=== PATIENT | male | born 1975 | race Two or more races ===

== ENCOUNTER 2025-04-22 09:26 | Outpatient (REF) | payer OTHER, SELFPAY ==
[2025-04-22 13:22] LABS: MANUAL DIFF FLAG NO
[2025-04-22 13:26] LABS: Appearance Urine Turbid; Glucose Urine UA Negative (Negative); PH 5.0 (5.0-9.0); Specific Gravity - Urine >= 1.030 (1.005-1.025); UMIC TRIGGER UACC YES
[2025-04-22 13:35] LABS: UACC Culture Trigger YES
[2025-04-22 13:42] LABS: Hematocrit 41.5 % (42.0-52.0); Hemoglobin 13.0 g/dl (14.0-18.0); Imm Gran Abs Auto 0.02 X10*3/uL (0.00-0.03); Imm Gran Pct Auto 0.3 % (0.0-0.4); Lymphocytes Absolute Auto 3.4 X10*3/uL (1.2-4.9); Mean Corpuscular HGB Conc 31.3 g/dl (31.0-36.0); Mean Corpuscular Hemoglobin 25.1 pg (27.0-33.0); Mean Corpuscular Volume 80.1 fL (80.0-98.0); NRBC Abs Auto 0.000 X10*3/uL (0.0-0.012); NRBC Pct Auto 0.0 /100WBC (0.0-0.2); Platelet Count 281 X10*3/uL (160-400); Red Blood Count 5.18 X10*6/uL (4.60-5.80); White Blood Count 7.8 X10*3/uL (4.8-10.8)
[2025-04-22 14:24] LABS: Alanine Aminotransferase 19 U/L (0-40); Albumin Level 4.4 g/dL (3.5-5.0); Alkaline Phosphatase 60 U/L (39-117); Anion Gap 11 (12-20); Aspartate Amino Transferase 21 U/L (5-37); Blood Urea Nitrogen 9 mg/dL (9-16); Calcium 8.9 mg/dL (8.4-10.2); Carbon Dioxide 25 mmol/L (22-29); Chloride 109 mmol/L (96-108); Cholesterol 194 mg/dL (<200); Estimated Glomerular Filt Rate > 60; HDL Cholesterol 47 mg/dL (>40); Magnesium 2.0 mg/dL (1.6-2.6); Potassium 4.4 mmol/L (3.3-5.1); Sodium 141 mmol/L (135-145); Total Protein 7.2 g/dL (6.5-8.0); Triglycerides 90 mg/dL (<150)
[2025-04-22 14:54] LABS: Folate 6.8 ng/mL (> or = 4.0); Vitamin B12 286 pg/mL (200-900)
[2025-04-23 05:22] LABS: HBS Num1 0.00 mIU/mL (0-7.99); HBsAGNum1 0.35 S/CO (0.00-0.99); HIV Num 1 0.06 S/CO (0.00-0.99); Hepatitis B Surface Antigen Negative (Negative); ~HepC Num1 0.13 S/CO (0.00-0.79); ~Hepatitis B Surface Antibody NONREACTIVE (Nonreactive); ~Hepatitis C Antibody Nonreactive (Nonreactive)
[2025-04-23 06:00] LABS: Syphilis Screen Nonreactive (Nonreactive)
[2025-04-27 18:12] LABS: VITAMIN D (1,25 OH) D3 47 pg/mL; Vit D (1,25-Dihydroxy) Total 47 pg/mL (18-72); Vitamin D (1,25 OH) D2 <8 pg/mL
== END 2025-04-22 09:27 | disposition home or self-care (01) ==
LOC: HO.HKASLDS 09:26
PROVIDERS: PCP Student in an Organized Health Care Education/Training Program; Visit Provider Student in an Organized Health Care Education/Training Program
DX: Z13.9 Encounter for screening, unspecified (principal); I26.99 Other pulmonary embolism without acute cor pulmonale; E11.9 Type 2 diabetes mellitus without complications; G47.9 Sleep disorder, unspecified; Z87.891 Personal history of nicotine dependence
CPT/HCPCS: 36415; 80053; 80061; 81001; 82607; 82652; 82746; 83036; 83735; 84443; 85025; 86706; 86780; 86803; 87086; 87088; 87186; 87340; 87389

== ENCOUNTER 2025-04-22 09:26 | Outpatient (AMB) | payer OTHER, SELFPAY ==
--- NOTE | 2025-04-22 09:27 | MHC.PC.OV ---
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 Intake Note: new patient presents with pulmonary thrombosis Industrial Workers Required: No Accompanied by: Spouse Allergies No Known Allergies Allergy (Verified 04/22/25 09:31) Medication List - Last Reconciled 04/22/25 by Carlito Pichardo MD apixaban 5 mg PO BID metformin 500 mg PO BID Tobacco use date assessed: 04/22/25 Dental Screening Dental Screen Date: 04/22/25 Did you have a dental visit in the last 12 months?: No Did you have a dental problem in the last 6 months where you did not have access to dental care?: No Was dental information given to patient?: No HPI HPI Comments History of Present Illness Details Consent Verbal consent was obtained from the patient for blood work, a Cologuard test for colon cancer screening, and a home sleep study. He also provided consent for the release of his medical records from [facility]. Patient was informed and verbally consented to the use of an ambient scribe for clinic note documentation during this visit. History of Present Illness The patient is a 49 year old male presenting to establish care following a recent hospitalization for deep vein thrombosis and bilateral pulmonary embolism. Deep Vein Thrombosis and Pulmonary Embolism: The patient was diagnosed with deep vein thrombosis and bilateral pulmonary embolism on March 16 after presenting to the [facility] emergency room. He reports that symptoms began on March 15 with lightheadedness, followed by dizziness and right leg numbness on the morning of March 16. He also experienced a rapid heart rate, which prompted him to seek emergency care. He was hospitalized and spent one day in the ICU. The patient denies any recent long trips or flights, and the consulting concession cashier reportedly stated the event was idiopathic. He is currently being treated with apixaban 5 mg twice daily. Type 2 Diabetes Mellitus: The patient was diagnosed with type 2 diabetes during his recent hospitalization. He was prescribed metformin but has run out of the medication. This is his first time having health insurance and he has never been to a doctor before. Sleep Disturbance: The patient reports he barely sleeps, averaging about 4 hours per night, typically from midnight to 4:30 AM. He snores but denies feeling tired during the day, though he does take naps after work. He has never had a sleep study performed. Tobacco Use: The patient reports a history of smoking, having quit in 1997. He recently relapsed and started smoking again two weeks before his hospitalization for DVT and PE. Surgical History: - Right arm surgery in 2010 for repair of three tendons and the median nerve following a laceration from glass. Medications: - Apixaban 5 mg twice daily for deep vein thrombosis and pulmonary embolism. - Metformin 500 mg twice daily for type 2 diabetes mellitus (patient has run out). Social History: - Tobacco Use: The patient is a current smoker who quit in 1997 but resumed smoking two weeks prior to his recent hospitalization. - Substance Use: He reports a history of smoking marijuana but states he has not used it since 1997. - Past Social History: The patient left home at age 11 and has been on his own since. 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 - Sleep: He sleeps approximately 4 hours per night. - Allergies: Patient reports no known allergies. Family History: - The patient is unaware of his family medical history as he left home at age 11. Diagnostic Results: - No diagnostic results were reviewed during this visit. Review of Systems - Constitutional: Reports a history of lightheadedness. - Cardiovascular: Reports a history of a rapid heart rate associated with his recent embolic event. - Neurological: Reports a history of dizziness and right leg numbness associated with his recent embolic event; reports chronic decreased sensation in his right hand, sparing the pinky and half of the ring finger, since a surgery in 2010. - Integumentary: Reports having skin tags. - GI/: Reports normal bowel and bladder function. - Sleep: Reports sleeping only about 4 hours per night and snoring. Denies feeling tired during the day but does take naps after work. - Psychiatric: Reports feeling nervous. 10-point ROS reviewed and negative except as noted in HPI Past Medical History - Deep vein thrombosis and bilateral pulmonary embolism, diagnosed March 16, requiring an ICU stay. - Type 2 diabetes mellitus, newly diagnosed during recent hospitalization. 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 - The patient has no other known medical history and reports this is his first time seeing a doctor. Health Maintenance - A Cologuard test was ordered for age-appropriate colon cancer screening. - Comprehensive baseline lab work was ordered, including a CBC, CMP, lipid panel, TSH, vitamin levels, and infectious disease screening. - Follow-up is scheduled in two weeks to review all results. Physical Exam General: Well-appearing, in no acute distress. Vital signs: Within normal limits. HEENT: Normocephalic, atraumatic. PERRLA, EOMI. Conjunctiva clear, sclera anicteric. Oropharynx clear, mucous membranes moist. TMs intact bilaterally. Neck: Supple, no lymphadenopathy, no thyromegaly, no JVD or carotid bruits. Presence of skin tags noted. Cardiovascular: RRR, normal S1/S2, no murmurs, rubs, or gallops. Peripheral pulses 2+ and symmetric. No edema. Respiratory: Lungs clear to auscultation bilaterally, no wheezes, rales, or rhonchi. Normal effort. Abdomen: Soft, non-tender, non-distended. Normoactive bowel sounds. No hepatosplenomegaly, no masses. MSK: Full range of motion, no joint swelling or deformity. Normal gait. Skin: Warm, dry, intact. No rashes, lesions, or pallor. Presence of skin tags noted.surgical scar right forearm Neuro: Alert and oriented x3. Cranial nerves II-XII intact. Strength 5/5 throughout. Sensation intact except for decreased sensation in the right arm, specifically the pinky and half of the ring finger. Reflexes 2+ symmetric. Normal coordination and gait. Psych: Appropriate mood and affect. Normal judgment and insight. Plan 1. Deep Vein Thrombosis And Pulmonary Embolism - A prescription for apixaban 5 mg twice daily for three months was sent to the pharmacy. - A request for medical records from his [facility] admission will be submitted to review the details of his workup, including imaging such as a CTA and echocardiogram. 2. Type 2 Diabetes Mellitus - A prescription for metformin 500 mg twice daily was sent to the pharmacy. - Ordered lab work includes an HbA1c to assess his glycemic control over the last three months. 3. Suspected Sleep Apnea - A referral for a home sleep study was placed to evaluate for obstructive sleep apnea. 4. Skin Tags - The patient was advised that the skin tags can be removed via cryotherapy at a future appointment if he desires. Discussion Notes I had a detailed discussion with the patient, who is establishing care for the first time after a recent, life-threatening diagnosis of DVT and pulmonary embolism, along with new-onset type 2 diabetes. I explained the plan, starting with prescribing his essential medications, apixaban and metformin. We discussed the importance of obtaining his hospital records from [facility] to understand the full diagnostic workup. I outlined the need for comprehensive baseline lab work and age-appropriate cancer screening with oguard, which he agreed to. We also addressed his poor sleep and snoring, and I placed a referral for a home sleep study to investigate for sleep apnea. I advised him to return in two weeks to review all results and formulate a long-term care plan. Patient Instructions - Continue taking Apixaban 5 mg twice a day for your blood clots. - Start taking Metformin 500 mg twice a day for your diabetes. - Please have your blood drawn at the lab here in the clinic today. - You will receive a Cologuard test kit in the mail. Please follow the instructions to collect a sample and mail it back. - A sleep clinic will contact you to arrange a home sleep study. It is important to complete this test. - Please sign the form at the front desk agent to give us permission to request your medical records from [facility]. - Schedule a follow-up appointment to see me in two weeks to go over your test results. - If you would like your skin tags removed, you can make a separate appointment for that procedure. Medical Decision Making The patient is a 49-year-old male with no prior established medical care who presents after a recent hospitalization for a life-threatening, unprovoked bilateral pulmonary embolism and DVT, and a new diagnosis of type 2 diabetes. The immediate priority is ensuring continuity of care by prescribing apixaban to prevent recurrent thrombosis and metformin for glycemic control. A comprehensive evaluation is necessary given his lack of previous healthcare. Baseline lab work, including HbA1c, lipids, and infectious disease screening, was ordered to establish his overall health status. Age-appropriate colon cancer screening with Cologuard was initiated. The patient's report of snoring and significant sleep restriction (4 hours/night) raises high suspicion for obstructive sleep apnea, a potential contributor to his cardiovascular risk; therefore, a home sleep study was ordered. Review of his hospital records from [facility] is critical to understand the extent of his prior thrombotic event workup, including cardiac imaging. A follow-up visit in two weeks will be used to review all pending results and formulate a comprehensive, long-term management plan. Total Time Statement 30 min Total time spent caring for the patient today includes pre-visit chart review, documentation, review of laboratory and diagnostic imaging results, medication reconciliation, medically necessary evaluation, counseling on diagnoses, care coordination, ordering appropriate tests and medications, review of tests performed by other providers, reporting test results to the patient, and communication with other healthcare providers. [facility] Medical History (Updated 04/22/25 @ 09:56 by Carlito Pichardo MD) History of tobacco use Diabetes type 2 Pulmonary embolism Sleep disturbance Bilateral pulmonary embolism Deep vein thrombosis Surgical History (Updated 04/22/25 @ 09:33 by Anthony Gibson CMA) History of surgery on arm Family History (Updated 04/22/25 @ 09:34 by Anthony Gibson CMA) Mother Kidney disease Maternal Grandmother Diabetes Social History Housing: House Alcohol intake: never Patient Tobacco Use Status: Never used Tobacco e-Cigarette/Vaping Use: Never Used Second Hand Smoke Exposure: No service: No Current occupational status: employed Current occupation: glazer, works in a [employer] shop Current occupational exposures/hazards: Yes Cognitive needs: No Hearing needs: No Vision needs: Yes Questionnaire PHQ-9 Over the last 2 weeks, how often have you been bothered by any of the following problems? 1. Little interest or pleasure in doing things: not at all 2. Feeling down, depressed, or hopeless: several days 3. Trouble falling or staying asleep, or sleeping too much: more than half the days 4. Feeling tired or having little energy: several days 5. Poor appetite or overeating: several days 6. Feeling bad about yourself - or that you are a failure or have let yourself or your family down: not at all 7. Trouble concentrating on things, such as reading the newspaper or watching television: not at all 8. Moving or speaking so slowly that other people could have noticed. Or the opposite - being so fidgety or restless that you have been moving around a lot more than usual: several days 9. Thoughts that you would be better off or of hurting yourself in some way: not at all Total score: 6 Depression Screening Interpretation: Negative Depression Screening Done: Yes 90489 - PHQ-9 Billing: Yes Source: Developed by Drs. Adonis Bourgeois, Hansel [address] and colleagues, with an educational alva from [employer]. Thrive Questionnaire Date Thrive assessed: 04/22/25 I am a: Patient What is your living situation today?: I have a steady place to live Within the past 12 months, did the food you bought not last and you didn't have the money to get more?: Never true Within the past 12 months, did you worry whether your food would run out before you got money to buy more?: Never true Do you have trouble paying for medicines?: I choose not to answer this question Do you have trouble getting transportation to medical appointments?: No Do you have trouble paying your heating and electricity bill?: I choose not to answer this question Do you have trouble taking care of your child, family member or friend?: No Do you have trouble with day-to-day activities such as bathing, preparing meals, shopping, managing finances, etc.?: No Are you currently unemployed and looking for a job?: No Are you interested in more education?: No Please select the resources that you would like help with: Paying for medicine and Utilities Currently or been in a relationship where the following occur: No concerns reported THRIVE Score: 0 AUDIT C Alcohol Use Questionnaire (AUDIT-C) 1. How often do you have a drink containing alcohol?: Never Total Score: 0 RADHA-7 AMB Questionnaire RADHA-7 Date RADHA - 7 assessed: 04/22/25 Feeling nervous, anxious, or on edge: 3 = Nearly every day Not being able to stop or control worryin = Several days Worrying too much about different things: 1 = Several days Trouble relaxin = Several days Being so restless that it is hard to sit still: 1 = Several days Becoming easily annoyed or irritable: 1 = Several days Feeling afraid as if something awful might happen: 1 = Several days Total RADHA-7 score (0-4 normal; 5-9 mild; 10-14 moderate; 15-21 severe): 9 Source: Developed by Fanny Olson Kurt Kroenke and colleagues, with an educational alva from [employer]. RADHA-7 Assessment Billing RADHA-7 Assessment Tool: RADHA-7 Assessment 88022 Review of Systems Narrative Review of Systems - Constitutional: Reports a history of lightheadedness. - Cardiovascular: Reports a history of a rapid heart rate associated with his recent embolic event. - Neurological: Reports a history of dizziness and right leg numbness associated with his recent embolic event; reports chronic decreased sensation in his right hand, sparing the pinky and half of the ring finger, since a surgery in 2010. - Integumentary: Reports having skin tags. - GI/: Reports normal bowel and bladder function. - Sleep: Reports sleeping only about 4 hours per night and snoring. Denies feeling tired during the day but does take naps after work. - Psychiatric: Reports feeling nervous. 10-point ROS reviewed and negative except as noted in HPI Physical exam (Primary Care) Depression Screening Interpretation: Negative Currently or been in a relationship where the following occur: No concerns reported Coding Level of Care Code New Pt Level 4 (10089) Diagnoses Pulmonary embolism I26.99 Diabetes type 2 E11.9 History of tobacco use Z87.891 Sleep disturbance G47.9 Additional Codes RADHA-7 Assessment Billing - RADHA-7 Assessment Tool: RADHA-7 Assessment 80732 ([id number]) PHQ-9 - 74847 - PHQ-9 Billing: Yes ([id number]) Assessment & Plan Assessment & Plan (1) Pulmonary embolism: Code(s): I26.99 - Other pulmonary embolism without acute cor pulmonale Category: Medical (2) Diabetes type 2: Code(s): E11.9 - Type 2 diabetes mellitus without complications Category: Medical (3) History of tobacco use: Code(s): Z87.891 - Personal history of nicotine dependence Category: Social Hx (4) Sleep disturbance: Code(s): G47.9 - Sleep disorder, unspecified Category: Medical Plan Orders: Orders Hepatitis B Surface Antigen Today Z13.9 - Encounter for screening, unspecified Hepatitis C Antibody Today Z13.9 - Encounter for screening, unspecified UA CC w/rflx Micro + Cult Today Z13.9 - Encounter for screening, unspecified AMB Hemoglobin A1c Today Z13.9 - Encounter for screening, unspecified Lipid Panel Today Z13.9 - Encounter for screening, unspecified RT home sleep study Today G47.9 - Sleep disorder, unspecified Complete Blood Count Auto Diff Today Z13.9 - Encounter for screening, unspecified Syphilis Screen Today Z13.9 - Encounter for screening, unspecified Comprehensive Met. Panel Today Z13.9 - Encounter for screening, unspecified TSH reflex Free T4 Today Z13.9 - Encounter for screening, unspecified HIV Ab/Ag Today Z13.9 - Encounter for screening, unspecified Vitamin B12 and Folate Today Z13.9 - Encounter for screening, unspecified Hemoglobin A1c Today Z13.9 - Encounter for screening, unspecified Magnesium Today Z13.9 - Encounter for screening, unspecified Vitamin D 1,25 dihydroxy Today Z13.9 - Encounter for screening, unspecified Hepatitis B Surface Antibody Today Z13.9 - Encounter for screening, unspecified Referrals Cologuard Test Z12.11 - Encounter for screening for malignant neoplasm of colon, Z12.12 - Encounter for screening for malignant neoplasm of rectum Medications: New apixaban 5 mg PO BID 180 tabs 0RF metformin 500 mg PO BID 180 tabs 0RF
[2025-04-22 09:35] VITALS: BP 152/89; PULSE 87; RESP 20; TEMP 37; O2SAT 99; BMI 35.4
--- OUTSIDE RECORDS SUMMARY | 2025-04-22 10:43 | XMS_ITS | Clinical Summary ---
Author Organization [facility] Address [address] [place] [address] Phone Care Team Providers Care Flow Nurse Name Role Phone Physician, No Pcp Primary Care Provider Unavaila ble Allergies No known active allergies Medications apixaban (ELIQUIS) starter pack Take 2 tablets (10 mg total) by mouth 2 (two) times a day for 7 days. Then take 1 tablet (5 mg total) by mouth 2 (two) times a day. 74 tablet 03/18/2025 Active metFORMIN (GLUCOPHAGE) 500 mg tablet Take 1 tablet (500 mg total) by mouth 2 (two) times a day with meals. 60 each 03/19/2025 Active Active Problems Problem Noted Date Diagnosed Date Bilateral pulmonary embolism ([facility]/HCC V24, CMS/H CC V28) 03/16/2025 Deep vein thrombosis (DVT) o f right lower extremity ([facility] V24, CMS/HCC V28) 03/16/2025 Encounters Date Type Department Care Team Description 03/16/2025 4:32 PM EDT - 03/18/2025 4:07 PM EDT Hospital Encounter [facility] [address] [place] [address] Cody Abreu MD Loiacono, Laurie, MD Bonacum, Julia T, MD Flores, Carlos M, MD Kela, Kashyap Devendrabhai, MD Bilateral pulmonary embolism ([facility] V24, CMS/[facility] V28) (Primary Dx); Chest pain, unspecified type; Other acute pulmonary embolism, unspecified whether acute cor pulmonale present ([facility] V24, [facility] V28) Discharge Disposition: Home or Self Care from Last 3 Months Social History Tobacco Use Types Packs/Day Years Used Date Smoking Tobacco: Some Days Cigarettes 0.5 0.4 Started: 11/2024 Passive Smoke Exposure: Current Smokeless Tobacco: Never Tobacco Cessation:Ready to Q uit: Not Asked Alcohol Use Standard Drinks/Week Comments Not Currently 0 (1 standard drink = 0.6 oz pur e alcohol) Housing Instability Answer Date Recorde d Are you worried that in the next 2 months you may not have stable housing? No 03/17/2025 Food Access & Nutrition Answer Date Rec orded Do you have access to a vari ety of food including fruits and vegetables? Yes 03/17/2025 Access to Healthcare Answer Date Record ed Within the last 3 months, ho w many times did you visit the emergency department for your medical care? 0 03/17/2025 Health Literacy Answer Date Recorded How often do you need to hav e someone help you when you read instructions, pamphlets, or other written material from your doctor or pharmacy? Never 03/17/2025 Caregiver: How often do you need to have someone help you when you read instructions, pamphlets, or other written material from your doctor or pharmacy? Not on file 03/17/2025 Financial Risk Answer Date Recorded How hard is it for you to pa y for the very basics like food, housing, medical care, and air conditioning / heating? Not very hard 03/17/2025 Transportation Answer Date Recorded Has the lack of transportati on kept you from meetings, work, or from getting things needed for daily living? No Has the lack of transportati on kept you from medical appointments or from getting medications? No 03/17/2025 Social Isolation Answer Date Recorded How often do you feel lonely or isolated from th ose around you? Never 03/17/2025 Food Risk Answer Date Recorded Within the past 12 months we worried whether our food would run out before we got money to buy more. Never true 03/17/2025 Within the past 12 months th e food we bought just didn't last and we didn't have money to get more. Never true 03/17/2025 Dependent Care Answer Date Recorded Do you need help finding or paying for care for your loved ones. For example, childbirth educator or elderly care for an older adult? No 03/17/2025 Education Answer Date Recorded Do you think completing more education or training, like finishing a GED, going to college, or learning a trade, would be helpful for you? No 03/17/2025 Employment and Income Answer Date Recor ded During the last four weeks, have you been actively looking for work? No 03/17/2025 Living Situation Answer Date Recorded What is your living situation? Unrecognized valu e 03/17/2025 Interpersonal Safety Answer Date Record ed Physical Abuse Unrecognized value 03/17/2025 Verbal Abuse Unrecognized value 03/17/2025 Sex and Gender Information Value Date Recorded Sex Assigned at Male 03/17/2025 12:45 AM EDT Legal Sex Male 4:06 PM EDT Gender Identity Male 03/17/2025 12:45 AM EDT Sexual Orientation Straight 03/17/2025 12 :45 AM EDT Obstetrics History Last Filed Vital Signs Vital Sign Reading Time Taken Comments Blood Pressure 125/72 03/18/2025 11:33 AM EDT Pulse 94 03/18/2025 11:33 AM EDT Temperature 36.1 C (96.9 F) 03/18/2025 11:33 AM EDT Respiratory Rate 18 03/18/2025 11:33 AM EDT Oxygen Saturation 100% 03/18/2025 11:33 AM EDT Inhaled Oxygen Concentration - - Weight 105 kg (231 lb 7.7 oz) 03/17/2025 10:09 A M EDT Height 175.3 cm (5' 9.02 ) 03/17/2025 10:09 AM E DT Body Mass Index 34.17 03/17/2025 10:09 AM EDT Plan of Treatment Health Maintenance Due Date Last Done Comments Colorectal Cancer Screening: Colonoscopy 1974 DTaP,Tdap,and Td Vaccines (1 - Tdap) 1993 Hepatitis B Vaccines (1 of 3 - 19+ 3-dose series) 1993 Pneumococcal Vaccine: 50+ Ye ars (1 of 2 - PCV) 1993 Depression Screening 05/20/2024 RSV Immunization Adult Patie nts (1 - Risk 50-74 years 1-dose series) 2024 Zoster Vaccines (1 of 2) 2024 COVID-19 Vaccine (1 - 2024-2 6 season) 2025 Influenza Vaccine (#1) 2025 Cholesterol Screening (Lipid Panel) 03/16/2025 HIV Screening 03/16/2025 Hepatitis C Screening 03/16/2025 Social Influencers of Health Screening 03/17/2026 03/17/2025 HIB Vaccines Aged Out No longer eligi ble based on patient's age to complete this topic HPV Vaccines Aged Out No longer eligi ble based on patient's age to complete this topic Hepatitis A Vaccines Aged Out No long er eligible based on patient's age to complete this topic IPV Vaccines Aged Out No longer eligi ble based on patient's age to complete this topic MMR Vaccines Aged Out No longer eligi ble based on patient's age to complete this topic Meningococcal ACWY Vaccine Aged Out N o longer eligible based on patient's age to complete this topic Meningococcal B Vaccine Aged Out No l onger eligible based on patient's age to complete this topic RSV Immunization Patients Un boo 20 months Aged Out No longer eligible b ased on patient's age to complete this topic Varicella Vaccines Aged Out No longer eligible based on patient's age to complete this topic Procedures Procedure Name Priority Date/Time Associated Diagnosis Comments ECG ANNOTATED 03/19/2025 POCT GLUCOSE BLOOD Routine 03/18/2025 11 :32 AM EDT POCT GLUCOSE BLOOD Routine 03/18/2025 8: 22 AM EDT BASIC METABOLIC PANEL Routine 03/18/2025 4:04 AM EDT HEPATIC FUNCTION PANEL Routine 4:04 AM EDT PHOSPHORUS Routine 03/18/2025 4:04 AM EDT MAGNESIUM Routine 03/18/2025 4:04 AM EDT CBC WITH AUTO DIFFERENTIAL Routine 03/18/2025 4:03 AM EDT LACTATE Routine 03/18/2025 4:03 AM EDT CBC AND DIFFERENTIAL Routine 03/18/2025 4:03 AM EDT CALCIUM, IONIZED Routine 03/18/2025 4:03 AM EDT HEPARIN AND LOW MOLECULAR WEIGHT ANTI XA LEVEL Timed 03/18/2025 4:03 AM EDT HEPARIN AND LOW MOLECULAR WEIGHT ANTI XA LEVEL Timed 03/17/2025 10:01 PM EDT POCT GLUCOSE BLOOD Routine 03/17/2025 8: 57 PM EDT POCT GLUCOSE BLOOD Routine 03/17/2025 4: 43 PM EDT HEPARIN AND LOW MOLECULAR WEIGHT ANTI XA LEVEL Timed 03/17/2025 4:08 PM EDT POCT GLUCOSE BLOOD Routine 03/17/2025 2: 51 PM EDT HOMOCYSTEINE, SERUM Routine 03/17/2025 1 2:48 PM EDT FACTOR V LEIDEN Routine 03/17/2025 12:48 PM EDT POCT GLUCOSE BLOOD Routine 03/17/2025 12 :41 PM EDT HEPARIN AND LOW MOLECULAR WEIGHT ANTI XA LEVEL STAT 03/17/2025 10:25 AM EDT TRANSTHORACIC ECHOCARDIOGRAM (TTE) COMPLETE W/ CONTRAST STAT 03/17/2025 10:10 AM EDT Bilateral pulmonary embolism (CMS/HCC V24, CMS/HCC V28) HEPARIN AND LOW MOLECULAR WEIGHT ANTI XA LEVEL STAT 03/17/2025 9:04 AM EDT POCT GLUCOSE BLOOD Routine 03/17/2025 8: 49 AM EDT HEPARIN AND LOW MOLECULAR WEIGHT ANTI XA LEVEL Timed 03/17/2025 7:00 AM EDT HEMOGLOBIN A1C STAT Add-on 03/17/2025 6:56 AM EDT LAVENDER - EDTA Routine 03/17/2025 6:56 AM EDT SST - GOLD Routine 03/17/2025 6:56 AM EDT EXTRA TUBES Routine 03/17/2025 6:56 AM EDT POCT GLUCOSE BLOOD Routine 03/17/2025 6: 17 AM EDT PROCALCITONIN Routine 03/17/2025 4:01 AM EDT CALCIUM, IONIZED Routine 03/17/2025 4:01 AM EDT CBC WITH AUTO DIFFERENTIAL Routine 03/17/2025 4:00 AM EDT PHOSPHORUS Routine 03/17/2025 4:00 AM EDT MAGNESIUM Routine 03/17/2025 4:00 AM EDT BASIC METABOLIC PANEL Routine 03/17/2025 4:00 AM EDT CBC AND DIFFERENTIAL Routine 03/17/2025 4:00 AM EDT POCT GLUCOSE BLOOD Routine 03/17/2025 3: 30 AM EDT LIM URINE CULTURE TUBE STAT 03/17/2025 2:10 AM EDT URINALYSIS WITH REFLEX MICROSCOPIC AND CULTURE STAT 03/17/2025 2:10 AM EDT URINALYSIS WITH REFLEX MICROSCOPIC AND CULTURE STAT 03/17/2025 2:10 AM EDT CULTURE URINE STAT 03/17/2025 2:10 AM EDT HEPARIN AND LOW MOLECULAR WEIGHT ANTI XA LEVEL Timed 03/17/2025 12:50 AM EDT LIM URINE CULTURE TUBE STAT 03/16/2025 9:38 PM EDT URINALYSIS WITH REFLEX MICROSCOPIC AND CULTURE STAT 03/16/2025 9:38 PM EDT URINALYSIS WITH REFLEX MICROSCOPIC AND CULTURE STAT 03/16/2025 9:38 PM EDT CULTURE URINE STAT 03/16/2025 9:38 PM EDT RESPIRATORY VIRUS PANEL MOLECULAR STUDY STAT 03/16/2025 9:38 PM EDT MRSA PCR STAT 03/16/2025 9:38 PM EDT POCT GLUCOSE BLOOD Routine 03/16/2025 9: 33 PM EDT HEPARIN AND LOW MOLECULAR WEIGHT ANTI XA LEVEL STAT 03/16/2025 7:52 PM EDT ACTIVATED PARTIAL THROMBOPLASTIN TIME STAT 03/16/2025 7:52 PM EDT PROTHROMBIN TIME WITH INR STAT 03/16/2025 7:52 PM EDT VAS US DUPLEX LOWER EXT VENOUS BILAT Routine 03/16/2025 7:41 PM EDT Chest pain, unspecified type CT ANGIO CHEST WO AND/OR W CONTRAST STAT 03/16/2025 6:36 PM EDT Chest pain, unspecified type ECG 12-LEAD STAT 03/16/2025 6:16 PM EDT D-DIMER STAT 03/16/2025 5:16 PM EDT TROPONIN I HIGH SENSITIVITY Timed 03/16/2025 5:16 PM EDT XR CHEST 2 VIEWS STAT 03/16/2025 5:07 PM EDT THYROID STIMULATING HORMONE STAT Add-on 03/16/2025 4:30 PM EDT CBC WITH AUTO DIFFERENTIAL STAT 03/16/2025 4:30 PM EDT B-TYPE NATRIURETIC PEPTIDE STAT 03/16/2025 4:30 PM EDT MAGNESIUM STAT 03/16/2025 4:30 PM EDT LIPASE STAT 03/16/2025 4:30 PM EDT COMPREHENSIVE METABOLIC PANEL STAT 03/16/2025 4:30 PM EDT CBC AND DIFFERENTIAL STAT 03/16/2025 4:30 PM EDT TROPONIN I HIGH SENSITIVITY Timed 03/16/2025 4:30 PM EDT ECG 12-LEAD STAT 03/16/2025 4:11 PM EDT RI CRITICAL CARE 30-74 MINUTES Routine 03/16/2025 4:06 PM EDT from Last 3 Months Results * ECG-Annotated (03/19/2025) us Provider Onbase MD ECG ORDERABLES Final Result * (ABNORMAL) POCT Glucose, blood (03/18/2025 11:32 AM EDT) Only the most recent of10 resultswithin the time period is included. [facility] Signature Glucose POCT 232(H) 70 - 100 mg/dL 03/18/2025 11:33 AM EDT [facility] ([facility]) [facility] Blood Capillary blood specimen / Unknown 03/18/2025 11:32 AM EDT 03/18/2025 11:34 AM EDT Yovani Heck MD LAB POINT O F CARE TEST DOCKED DEVICE UNSOLICITED RESULTS Final Result Performing Organization Address City/[facility]/ZIP Co de Phone Number [facility] [address] [place] [address], [place] [phone] * Phosphorus (03/18/2025 4:04 AM EDT) Only the most recent of2 resultswithin the time period is included. Phosphorus 3.2 2.5 - 4.5 mg/dL LAB CHEMISTRY METHOD 03/18/2025 5:13 AM EDT [facility] Blood Venous blood specimen / Unknown Venipuncture / Unknown 03/18/2025 4:04 AM EDT 03/18/2025 5:13 AM EDT Estrellita Medina MD LAB BLOOD ORDERABLES Final Re sult Performing Organization Address [facility] Co de Phone Number [facility] [address] [place] [address], [place] [phone] * Magnesium (03/18/2025 4:04 AM EDT) Only the most recent of3 resultswithin the time period is included. Magnesium 2.1 1.9 - 2.6 mg/dL LAB CHEMISTRY METHOD 03/18/2025 5:13 AM EDT [facility] Blood Venous blood specimen / Unknown Venipuncture / Unknown 03/18/2025 4:04 AM EDT 03/18/2025 5:13 AM EDT Estrellita Medina MD LAB BLOOD ORDERABLES Final Re sult Performing Organization Address City/[facility]/ZIP Co de Phone Number [facility] [address] [place] [address], [place] [phone] * (ABNORMAL) Hepatic function panel (03/18/2025 4:04 AM EDT) Total Protein 6.9 6.0 - 8.0 g/dL LAB CHEMISTRY METHOD 03/18/2025 5:34 AM EDT [facility] Albumin 3.2 3.2 - 5.0 g/dL LAB CHEMISTRY METHOD 03/18[facility]2025 [facility] Total Bilirubin 0.5 0.0 - 1.4 mg/dL LAB CHEMISTRY METHOD 03/18/2025 5:34 AM [facility] Bilirubin, Direct 0.1 0.0 - 0.3 mg/dL LAB CHEMISTRY METHOD 03/18/2025 5:34 AM [facility] Bilirubin, Indirect 0.4 0.0 - 1.1 mg/dL LAB CHEMISTRY METHOD 03/18/2025 5:34 AM [facility] Comment:Unable to calculate Indirect Bilirubin. ALT (SGPT) 18 10 - 60 unit/L LAB CHEMISTRY METHOD 03/18/2025 5:34 AM [facility] AST (SGOT) 7(L) 10 - 42 unit/L LAB CHEMISTRY METHOD 03/18/2025 5:34 AM [facility] Alkaline Phosphatase 65 42 - 121 unit/L LAB CHEMISTRY METHOD 03/18/2025 5:34 AM [facility] Blood Venous blood specimen / Unknown Venipuncture / Unknown 03/18/2025 4:04 AM EDT 03/18/2025 5:13 AM EDT us Estrellita Medina MD LAB BLOOD ORDERABLES Final Re sult [facility] [address] [place] [address], [place] [phone] * (ABNORMAL) Basic metabolic panel (03/18/2025 4:04 AM EDT) Only the most recent of2 resultswithin the time period is included. Sodium 138 133 - 145 mmol/L LAB CHEMISTRY METHOD 03/18/2025 5:34 AM [facility] Potassium 4.4 3.5 - 5.5 mmol/L LAB CHEMISTRY METHOD 03/18/2025 5:34 AM [facility] Chloride 107 96 - 110 mmol/L LAB CHEMISTRY METHOD 03/18/2025 5:34 AM [facility] CO2 25 21 - 32 mmol/L LAB CHEMISTRY METHOD 03/18/2025 5:34 AM [facility] Anion Gap 6 3 - 11 LAB CHEMISTRY METHOD 03/18/2025 5:34 AM [facility] Glucose 163(H) 70 - 100 mg/dL LAB CHEMISTRY METHOD 03/18/2025 5:34 AM [facility] BUN 15 5 - 25 mg/dL LAB CHEMISTRY METHOD 03/18/2025 5:34 AM [facility] Creatinine 0.86 0.70 - 1.30 mg/dL LAB CHEMISTRY METHOD 03/18/2025 5:34 AM [facility] eGFR 105 >=60 mL/min/1. 73m2 LAB CHEMISTRY METHOD 03/18/2025 5:34 AM [facility] Comment:Calculation based on the Chronic Kidney Disease Epidemiology Collaboration (CKD-EPI) equation refit without adjustment for race. BUN/Creatinine Ratio 17.4 LAB CHEMISTRY METHOD 03/18/2025 5:34 AM [facility] Calcium 9.0 8.5 - 10.5 mg/dL LAB CHEMISTRY METHOD 03/18/2025 5:34 AM [facility] Blood Venous blood specimen / Unknown Venipuncture / Unknown 03/18/2025 4:04 AM EDT 03/18/2025 5:13 AM EDT us Estrellita Medina MD LAB BLOOD ORDERABLES Final Re sult [facility] [address] [place] [address], * (ABNORMAL) CBC auto differential (03/18/2025 4:03 AM EDT) Only the most recent of3 resultswithin the time period is included. WBC 10.3 4.8 - 10.8 K/mcL LAB HEMETOLOGY METHOD 03/18/2025 4:51 AM EDT [facility] RBC 5.10 4.50 - 5.50 M/mcL LAB HEMETOLOGY METHOD 03/18/2025 4:[facility] Hemoglobin 13.2(L) 13.5 - 17.5 g/dL LAB HEMETOLOGY METHOD 03/18/2025 4:51 AM EDT [facility] Hematocrit 40.9(L) 42.0 - 54.0 % LAB HEMETOLOGY METHOD 03/18/2025 4:51 [facility] MCV 79.6 79.0 - 98.0 FL LAB HEMETOLOGY METHOD 03/18/2025 4:51 AM [facility] MCH 25.7(L) 27.0 - 32.0 pcg LAB HEMETOLOGY METHOD 03/18/2025 4:51 AM EDT [facility] MCHC 32.3 32.0 - 37.0 g/dL LAB HEMETOLOGY METHOD 03/18/2025 4:51 AM EDT [facility] RDW 13.9 11.0 - 15.0 % LAB HEMETOLOGY METHOD 03/18/2025 4:51 [facility] Platelets 166 130 - 400 K/mcL LAB HEMETOLOGY METHOD 03/18/2025 4:51 AM [facility] MPV 10.3 7.0 - 11.0 FL LAB HEMETOLOGY METHOD 03/18/2025 4:51 AM [facility] NRBC 0.0 <1.0 % LAB HEMETOLOGY METHOD 03/18/2025 4:51 AM [facility] NRBC Absolute 0.00 <0.10 K/mcL LAB HEMETOLOGY METHOD 03/18/2025 4:51 AM [facility] Neutrophils Relative 47.6 % LAB HEMETOLOGY METHOD 03/18/2025 4:51 AM [facility] Lymphocytes Relative 38.3 % LAB HEMETOLOGY METHOD 03/18/2025 4:51 AM [facility] Monocytes Relative 6.8 % LAB HEMETOLOGY METHOD 03/18/2025 4:51 AM [facility] Eosinophils Relative 6.4 % LAB HEMETOLOGY METHOD 03/18/2025 4:51 AM [facility] Basophils Relative 0.4 % LAB HEMETOLOGY METHOD 03/18/2025 4:51 AM [facility] Immature Granulocytes Relative 0.5 % LAB HEMETOLOGY METHOD 03/18/2025 4:51 AM [facility] Neutrophils Absolute 4.91 1.50 - 7.00 K/mcL LAB HEMETOLOGY METHOD 03/18/2025 4:51 AM [facility] Lymphocytes Absolute 3.94 1.00 - 5.00 K/mcL LAB HEMETOLOGY METHOD 03/18/2025 4:51 AM [facility] Monocytes Absolute 0.70 0.20 - 1.00 K/mcL LAB HEMETOLOGY METHOD 03/18/2025 4:51 AM [facility] Eosinophils Absolute 0.66(H) 0.00 - 0.50 K/mcL LAB HEMETOLOGY METHOD 03/18/2025 4:51 AM [facility] Basophils Absolute 0.04 0.00 - 0.20 K/mcL LAB HEMETOLOGY METHOD 03/18/2025 4:51 AM EDT [facility] Immature Granulocytes Absolute 0.05(H) 0.00 - 0.03 K/[facility] LAB HEMETOLOGY METHOD 03/18/2025 4:51 AM EDT [facility] Blood Venous blood specimen / Unknown Venipuncture / Unknown 03/18/2025 4:03 AM EDT 03/18/2025 4:44 AM EDT Estrellita Medina MD LAB BLOOD ORDERABLES Final Re sult Performing Organization Address [facility]/ZIP Co de Phone Number [facility] [address] [place] [address], [place] [phone] * (ABNORMAL) Anti-Xa - Every 6 Hours (03/18/2025 4:03 AM EDT) Only the most recent of8 resultswithin the time period is included. Heparin Anti-Xa 0.71(H) 0.30 - 0.70 I Unit/mL LAB COAGULATION METHOD 03/18/2025 4:54 AM EDT [facility] Blood Venous blood specimen / Unknown Venipuncture / Unknown 03/18/2025 4:03 AM EDT 03/18/2025 4:44 AM EDT Narrative [facility] - 03/18/2025 4:54 AM EDT Therapeutic range listed is for Unfractionated Heparin. LMW Heparin therapeutic range: 0.50-1.20 IU/mL us Estrellita Medina MD LAB BLOOD ORDERABLES Final Re sult Performing Organization Address City/[facility]/ZIP Co de Phone Number [facility] [address] [place] [address], [place] [phone] * Lactate (03/18/2025 4:03 AM EDT) Lactate 0.9 0.4 - 2.0 mmol/L LAB CHEMISTRY METHOD 03/18/2025 5:12 AM EDT [facility] Blood Venous blood specimen / Unknown Venipuncture / Unknown 03/18/2025 4:03 AM EDT 03/18/2025 4:44 AM EDT us Estrellita Medina MD LAB BLOOD ORDERABLES Final Re sult Performing Organization Address [facility] Co de Phone Number [facility] [address] [place] [address], [place] [phone] * (ABNORMAL) Calcium, ionized (03/18/2025 4:03 AM EDT) Only the most recent of2 resultswithin the time period is included. [facility] Calcium Ionized 4.48(L) 4.50 - 5.30 mg/dL 03/18/2025 4:52 AM EDT [facility] Blood Venous blood specimen / Unknown Venipuncture / Unknown 03/18/2025 4:03 AM EDT 03/18/2025 4:44 AM EDT us Estrellita Medina MD LAB BLOOD ORDERABLES Final Re sult Performing Organization Address [facility] de Phone Number [facility] [address] [place] [address], [place] [phone] * Factor V leiden (03/17/2025 12:48 PM EDT) [facility] Factor V Leiden Mutation Negative 03/22/2025 1:36 PM EST [facility] Comment: The pathogenic F5 Leiden variant ([id number]) was NOT DETECTED. 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 This test does not rule out other mutations that may contribute to venous thrombosis. This test was performed using the radha(R) Factor V Test (Candace) - an in vitro diagnostic device that uses real-time quantitative Polymerase Chain Reaction (qPCR) for the detection and genotyping of the human factor V (F5) gene. The test detects the presence of the wild type (WT) F5 gene and the pathogenic c.1691G>A variant (also known as the F5 Leiden variant) in genomic DNA isolated from whole blood specimens as an aid in diagnosing patients with suspected thrombophilia. The radha(R) Factor V Test and the radha z 480 analyzer are used together for automated amplification and detection. The limit of detection for this test is 0.1 ng/uL of genomic DNA (2.5 ng/PCR reaction). Test performed at [facility], [address] , [place] [address] Mell Roldan MD, PhD - Surface Supervisor Blood Venous blood specimen / Unknown Venipuncture / Unknown 03/17/2025 12:48 PM EDT 03/17/2025 1:11 PM EDT us Estrellita Medina MD LAB MOLECULAR DIAGNOSTICS ORD ERABLES Final Result [facility] [address] [place] [address] * Homocysteine, serum (03/17/2025 12:48 PM EDT) [facility] Homocysteine 9.2 3.2 - 10.7 mcmol/L LAB CHEMISTRY METHOD 03/17/2025 2:30 PM EDT [facility] Blood Venous blood specimen / Unknown Venipuncture / Unknown 03/17/2025 12:48 PM EDT 03/17/2025 1:11 PM EDT us Estrellita Medina MD LAB BLOOD ORDERABLES Final Re sult [facility] [address] [place] [address], [place] [phone] * (ABNORMAL) TRANSTHORACIC ECHOCARDIOGRAM (TTE) COMPLETE W/ CONTRAST (03/17/2025 10:10 AM EDT) LV EDV (A2C) 104 mL CV PACS LV EDV (A4C) 123 mL CV PACS LV Diastolic Volume (BP) 113 62 - 150 mL CV PACS LV ESV (A2C) 35 mL CV PACS LV ESV (A4C) 57 mL CV PACS LV Systolic Volume (BP) 45 21 - 61 mL CV PACS IVSD 0.9 0.6 - 1.0 cm CV PACS LVIDD 3.9(A) 4.2 - 5.8 cm CV PACS LVIDS 3.0 2.5 - 4.0 cm CV PACS LVOT Diameter 2.1 cm CV PACS LVOT Mean Luis Carlos 0.5 m/s CV PACS LVOT Mean Grad 1 mmHg CV PACS LVOT Peak VTI 16.0 cm CV PACS LVOT Peak Luis Carlos 0.8 m/s CV PACS LVOT Peak Gradient 3 mmHg CV PACS LVPWD 1.0 0.6 - 1.0 cm CV PACS MV E' Tissue Velocity Lateral 11 cm/s CV PACS MV E' Tissue Velocity Septal 8 cm/s CV PACS Ejection Fraction (A2C) 67 % CV PACS Ejection Fraction (A4C) 54 % CV PACS Ejection Fraction (BP) 60 % CV PACS LVOT Area 3.5 cm2 CV PACS LVOT Stroke Volume 55 mL CV PACS Left Atrium Minor Vanlue 4.7 cm CV PACS Left Atrium Major Vanlue 4.8 cm CV PACS LA Area Sys (A2C) 13 cm2 CV PACS LA Area Sys (A4C) 11 cm2 CV PACS LA Volume (BP) 24 mL CV PACS RA Area 12.0 cm2 CV PACS RA 2D Volume 25 mL CV PACS AV Mean Gradient 3 mmHg CV PACS Ao VTI 17.2 cm CV PACS AV Peak Luis Carlos 1.1 m/s CV PACS AV Peak Gradient 5 mmHg CV PACS AV Area Continuity Equation 3.2 cm2 CV PACS AV Area Peak Velocity 2.5 cm2 CV PACS Aortic Sinus Valsalva 3.3 cm CV PACS IVC Proximal 1.2 cm CV PACS MV Deceleration [place] 6.4 m/s2 CV PACS E Wave Deceleration Time 85(A) 119 - 242 ms CV PACS MV PHT 25 ms CV PACS MV Peak A Luis Carlos 0.90 m/s CV PACS MV Peak E Luis Carlos 0.50 m/s CV PACS MV Area PHT 8.8 cm2 CV PACS RV Diastolic Basal Dimension 3.5 2.5 - 4.1 cm CV PACS RV S' 11 cm/s CV PACS TAPSE 24 mm CV PACS LV ESV Index (A4C) 26 mL/m2 CV PACS LV EDV Index (A4C) 56 mL/m2 CV PACS E/E' Ratio Septal 6 CV PACS E/E' Ratio Averaged 5 CV PACS LVOT Stroke Index 0 mL/m2 CV PACS Relative Wall Thickness ratio 0.51(A) 0.24 - 0.42 CV PACS LVOT:AV VTI Index 0.93 CV PACS FS 23 % CV PACS LV Mass 2D 114 96 - 200 g CV PACS LVOT flow 173 mL/s CV PACS RA 2D Volume Index 11 18 - 32 mL/m2 CV PACS XIMENA Index (VTI) 1.46 cm2/m2 CV PACS XIMENA Index (Pk Luis Carlos) 1.14 cm2/m2 CV PACS LVIDD Index 1.77 cm/m2 CV PACS LVIDS Index 1.36 cm/m2 CV PACS AV Velocity Ratio 0.71 CV PACS E/A Ratio 0.6 0.8 - 2.0 CV PACS E/E' Ratio Lateral 5 CV PACS LV Systolic Volume Index (BP) 0(A) 11 - 31 mL/m2 CV PACS LV Diastolic Volume Index (BP) 0(A) 34 - 74 mL/m2 CV PACS LA Volume Index (BP) 10 mL/m2 CV PACS LV Mass Index 2D 52 50 - 102 g/m2 CV PACS LV EDV Index (A2C) 47 mL/m2 CV PACS LV ESV Index (A2C) 16 mL/m2 CV PACS BSA 2.26 m2 CV PACS Est. RA Pressure 3 mmHg CV PACS LA Volume (A-L) 59 mL CV PACS LA Volume Index (A-L) 27 mL/m2 CV PACS RV Free Wall Peak S' 11 cm/s CV PACS RA Major Vanlue 4.9 cm CV PACS RA Major Vanlue Index 2.2 2.1 - 2.7 cm/m2 CV PACS AV Area 2D 2.5 cm2 CV PACS XIMENA Index (2D) 1.14 cm2/m2 CV PACS Inferior Vena Cava Diameter At Expiration 1.2 cm CV PACS IVC Expiration Index 0.55 cm/m2 CV PACS LV EF MOD 2C 67 % CV PACS LV EF 4C A-L 54 % CV PACS LV EDV 4C A-L 127 mL CV PACS LV Length Sys (A4C) 7.6 cm CV PACS LV Length Canales (A4C) 9.1 cm CV PACS AV Area Index 1.1 CV PACS Left Ventricular Stroke Volume by 2-D Biplane-MOD 67 mL CV PACS Anatomical Region Laterality Modality Ultrasound Narrative 03/17/2025 11:17 AM EDT Left ventricle cavity size is normal. Normal left ventricular wall thickness. Normal left ventricular regional wall motion. 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 Left ventricular systolic function is in the normal range with an ejection fraction in the 55-70% range. Right ventricle cavity is normal. Right ventricular systolic function is normal. No hemodynamically significant valve disease. Normal left ventricular diastolic function. This is consistent with normal left atrial pressure. Left Ventricle Left ventricle cavity size is normal. Wall thickness is normal. Systolic function is normal with an ejection fraction of 55-60%. There are no regional LV wall motion abnormalities. There is a small, focal outpouching seen at the LV apex. This may be an artifact r elated to off axis imaging. 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 There is no evidence of LV apical thrombus There is no diastolic dysfunction and normal left atrial pressure. Right Ventricle Right ventricle cavity appears normal. Systolic function is normal. Left Atrium Left atrium cavity size is normal. Right Atrium Right atrium cavity is normal. IVC/SVC RA pressures is estimated to be 3 mmHg (IVC diameter <21 mm and decreases >50% during inspiration). Mitral Valve The leaflets are mildly thickened. There is annular calcification. There is trace regurgitation. There is no evidence of mitral valve stenosis. Tricuspid Valve Tricuspid valve structure is normal. Tricuspid regurgitation is inadequate for estimation of right ventricular systolic pressure. There is no evidence of tricuspid valve stenosis. Cannot assess RVSP. Aortic Valve The aortic valve morphology was not well visualized. There is no regurgitation or stenosis. Pulmonic Valve The pulmonic valve was not well visualized. There is no regurgitation or stenosis. Ascending Aorta Normal aortic sinus. Ascending and transverse aorta not well visualized. Pericardium Pericardium appears normal. There is no pericardial effusion. Study Details Overall the study quality was technically difficult. Definity contrast was given to enhance imaging. Study was difficult due to: procedure performed with the patient in a supine position. Bradley CREWS CV ECHO PROCEDURES Final Result * SST tube (03/17/2025 6:56 AM EDT) Extra Tube Hold for add-ons. 03/17/2025 9:01 AM EDT [facility] Comment:Auto resulted. Blood Venous blood specimen / Unknown Venipuncture / Unknown 03/17/2025 6:56 AM EDT 03/17/2025 7:33 AM EDT Rosa Hu MD LAB BLOOD ORDERABLES Final Re sult Performing Organization Address City/[facility]/ZIP Co de Phone Number [facility] [address] [place] [address], [place] [phone] * Lavender tube (03/17/2025 6:56 AM EDT) Extra Tube Hold for add-ons. 03/17/2025 9:01 AM EDT [facility] Comment:Auto resulted. Blood Venous blood specimen / Unknown 03/17/2025 6:56 AM EDT 03/17/2025 7:33 AM EDT Rosa Hu MD LAB BLOOD ORDERABLES Final Re sult [facility] [address] [place] [address], [place] [phone] * (ABNORMAL) Hemoglobin A1c (03/17/2025 6:56 AM EDT) Hemoglobin A1C 8.9(H) <6.5 % LAB CHEMISTRY METHOD 03/17/2025 9:21 PM EDT [facility] Mean Bld Glu Estim. 209 mg/dL LAB CHEMISTRY METHOD 03/17/2025 9:21 PM EDT [facility] Blood Venous blood specimen / Unknown 03/17/2025 6:56 AM EDT 03/17/2025 7:33 AM EDT Paula Fam PATHOLOGIST LAB BLOOD ORDERABLES Fin al Result [facility] [address] [place] [address], [place] [phone] * Procalcitonin (03/17/2025 4:01 AM EDT) Pathologist [facility] Procalcitonin 0.10 <=0.16 ng/mL LAB CHEMISTRY METHOD 03/17/2025 9:38 AM EDT [facility] Blood Venous blood specimen / Unknown Venipuncture / Unknown 03/17/2025 4:01 AM EDT 03/17/2025 4:14 AM EDT Narrative [facility] - 03/17/2025 9:38 AM EDT Procalcitonin > 2.00 ng/ml: Procalcitonin Levels above 2.00 ng/ml, on the first day of ICU admission represent a high risk for progression to severe sepsis and/or septic shock. Procalcitonin < 0.50 ng/ml: Procalcitonin levels below 0.50 ng/ml on the first day of ICU admission represent a low risk for progression to severe sepsis and/or septic shock. Concentrations <0.5 ng/mL do not exclude an infection, on account of local ized infections (without systemic signs) which can be associated with such low concentrations, or a systemic infection in its initial stages (<6 hours). Furthermore, increased procalcitonin can occur without infection. PCT concentrations between 0.5 and 2.0 ng/mL should be interpreted taking into account the patient's history. It is recommended to retest PCT within 6-24 hours if any concentrations <2.0 ng/mL are obtained. us Bradley CREWS LAB BLOOD ORDERABLES Final Resul t [facility] [address] [place] [address], * (ABNORMAL) Urinalysis with reflex microscopic and culture (03/17/2025 2:10 AM EDT) Only the most recent of2 resultswithin the time period is included. Specific [place] Urine >1.045(H) 1.003 - 1.030 LAB URINALYSIS - AUTOMATED METHOD 03/17/2025 2:39 AM [facility] pH, Urine 6.0 5.0 - 8.0 pH LAB URINALYSIS - AUTOMATED METHOD 03/17/2025 2:39 AM [facility] Leukocytes, Urine Small(A) Negative LAB URINALYSIS - AUTOMATED METHOD 03/17/2025 2:39 AM [facility] Nitrite, Urine Positive(A) Negative LAB URINALYSIS - AUTOMATED METHOD 03/17/2025 2:39 AM [facility] Protein, Urine Trace <=Trace mg/dL LAB URINALYSIS - AUTOMATED METHOD 03/17/2025 2:39 AM [facility] Glucose, Urine 500(A) Negative mg/dL LAB URINALYSIS - AUTOMATED METHOD 03/17/2025 2:39 AM [facility] Ketones, Urine Trace(A) Negative mg/dL LAB URINALYSIS - AUTOMATED METHOD 03/17/2025 2:39 AM [facility] Urobilinogen , Urine 1.0 0.2 - 1.0 mg/dL LAB URINALYSIS - AUTOMATED METHOD 03/17/2025 2:39 AM [facility] Bilirubin, Urine Negative Negative LAB URINALYSIS - AUTOMATED METHOD 03/17/2025 2:39 AM [facility] Blood, Urine Negative Negative LAB URINALYSIS - AUTOMATED METHOD 03/17/2025 2:39 AM [facility] RBC, Urine 3.2 0 - 4 /HPF LAB URINALYSIS - AUTOMATED METHOD 03/17/2025 2:39 AM [facility] WBC, Urine 38.6(H) 0 - 4 /HPF LAB URINALYSIS - AUTOMATED METHOD 03/17/2025 2:39 AM [facility] Squamous Epithelial, Urine 14 0 - 60 /LPF LAB URINALYSIS - AUTOMATED METHOD 03/17/2025 2:39 AM [facility] Bacteria, Urine Many(A) Negative /HPF LAB URINALYSIS - AUTOMATED METHOD 03/17/2025 2:39 AM [facility] Hyaline Casts, Urine 3.0 0 - 3 /LPF LAB URINALYSIS - AUTOMATED METHOD 03/17/2025 2:39 AM [facility] Urine Urine specimen obtained by clean catch procedure / Unknown Non-blood Collection / Unknown 03/17/2025 2:10 AM EDT 03/17/2025 2:14 AM EDT us Bradley CREWS LAB URINE ORDERABLES Final Resul t [facility] [address] [place] [address], [place] [phone] * Lim urine culture tube (03/17/2025 2:10 AM EDT) Only the most recent of2 resultswithin the time period is included. Extra Tube Hold for add-ons. 03/17/2025 4:01 AM [facility] Comment:Auto resulted. Urine Urine specimen obtained by clean catch procedure / Unknown Non-blood Collection / Unknown 03/17/2025 2:10 AM EDT 03/17/2025 2:14 AM EDT us Bradley CREWS LAB URINE ORDERABLES Final Resul t Performing Organization Address [facility]/ZIP Co de Phone Number [facility] [address] [place] [address], [place] [phone] * (ABNORMAL) Culture urine (03/17/2025 2:10 AM EDT) Only the most recent of2 resultswithin the time period is included. Culture, Urine >=100,000 CFU/mL Escherichia coli(A) 03/21/2025 7:52 AM EST [facility] Urine Urine specimen obtained by clean catch procedure / Unknown Non-blood Collection / Unknown 03/17/2025 2:10 AM EDT 03/17/2025 2:39 AM EDT Narrative Organism Antibiotic Method Susceptibility Escherichia coli Amikacin DISK DIFFUSION Susceptible Escherichia coli Amoxicillin/Clavulanate DISK DIFFUSIO N Intermediate Escherichia coli Ampicillin/Sulbactam DISK DIFFUSION Intermediate Escherichia coli Cefazolin DISK DIFFUSION Susceptible Escherichia coli Cefepime DISK DIFFUSION Susceptible Escherichia coli Cefoxitin DISK DIFFUSION Susceptible Escherichia coli Ceftazidime DISK DIFFUSION Susceptible Escherichia coli Ceftriaxone DISK DIFFUSION Susceptible Escherichia coli Ciprofloxacin DISK DIFFUSION Susceptible Escherichia coli Gentamicin DISK DIFFUSION Susceptible Escherichia coli Levofloxacin DISK DIFFUSION Susceptible Escherichia coli Meropenem DISK DIFFUSION Susceptible Escherichia coli Nitrofurantoin DISK DIFFUSION Susceptible Escherichia coli Piperacillin/Tazobactam DISK DIFFUSIO N Susceptible Escherichia coli Trimethoprim/Sulfamethoxazole DISK DI FFUSION Susceptible Comment: us Bradley CREWS LAB MICROBIOLOGY - GENERAL ORDER HALEIGH Final Result Performing Organization Address [facility]/ZIP Co de Phone Number [facility] [address] [place] [address], [place] [phone] * Respiratory virus panel molecular study (03/16/2025 9:38 PM EDT) Adenovirus Detection by PCR Not Detected Not Detected LAB MICROBIOLOGY METHOD 03/17/2025 12:27 AM EDT [facility] Influenza A PCR Not Detected Not Detected LAB MICROBIOLOGY METHOD 03/17/2025 12:27 AM EDT [facility] Influenza B PCR Not Detected Not Detected LAB MICROBIOLOGY METHOD 03/17/2025 12:27 AM EDT [facility] Coronavirus 229E Not Detected Not Detected LAB MICROBIOLOGY METHOD 03/17/2025 12:27 AM EDT [facility] Coronavirus HKU1 Not Detected Not Detected LAB MICROBIOLOGY METHOD 03/17/2025 12:27 AM EDT [facility] Coronavirus OC43 Not Detected Not Detected LAB MICROBIOLOGY METHOD 03/17/2025 12:27 AM EDT [facility] Coronavirus NL63 Not Detected Not Detected LAB MICROBIOLOGY METHOD 03/17/2025 12:27 AM EDT [facility] Parainfluenza Virus 1 Not Detected Not Detected LAB MICROBIOLOGY METHOD 03/17/2025 12:27 AM EDT [facility] Parainfluenza Virus 2 Not Detected Not Detected LAB MICROBIOLOGY METHOD 03/17/2025 12:27 AM EDT [facility] Parainfluenza Virus 3 Not Detected Not Detected LAB MICROBIOLOGY METHOD 03/17/2025 12:27 AM EDT [facility] Parainfluenza Virus 4 Not Detected Not Detected LAB MICROBIOLOGY METHOD 03/17/2025 12:27 AM EDT [facility] RSV PCR Not Detected Not Detected LAB MICROBIOLOGY METHOD 03/17/2025 12:27 AM EDT [facility] Human Metapneumovirus A and B Not Detected Not Detected LAB MICROBIOLOGY METHOD 03/17/2025 12:27 AM EDT [facility] Rhinovirus/Entero virus Not Detected Not Detected LAB MICROBIOLOGY METHOD 03/17/2025 12:27 AM EDT [facility] Bordetella pertussis Not Detected Not Detected LAB MICROBIOLOGY METHOD 03/17/2025 12:27 AM EDT [facility] Bordetella parapertussis Not Detected Not Detected LAB MICROBIOLOGY METHOD 03/17/2025 12:27 AM EDT [facility] Mycoplasma pneumo by PCR Not Detected Not Detected LAB MICROBIOLOGY METHOD 03/17/2025 12:27 AM EDT [facility] Chlamydia pneumoniae Not Detected Not Detected LAB MICROBIOLOGY METHOD 03/17/2025 12:27 AM EDT [facility] SARS COV-2 Not Detected Not Detected LAB MICROBIOLOGY METHOD 03/17/2025 12:27 AM EDT [facility] Swab Both anterior nares / Unknown Non-blood Collection / Unknown 03/16/2025 9:38 PM EDT 03/16/2025 10:12 PM EDT Narrative [facility] - 03/17/2025 12:27 AM EDT Testing was performed using the [employer] Respiratory Pathogen PCR Assay. All results must be correlated with the clinical findings. Results should not be used as the sole basis for diagnosis. False Negative results may occur from the presence of sequence variants in the region targeted by the assay or the presence of inhibitors. Results may be affected by concurrent antiviral/antimicrobial therapy or levels of organisms that are below the limit of detection. us Bradley CREWS LAB MICROBIOLOGY - GENERAL ORDER HALEIGH Final Result [facility] [address] [place] [address], * MRSA molecular study (03/16/2025 9:38 PM EDT) [facility] MRSA Screen PCR Not Detected Not Detected LAB MICROBIOLOGY METHOD 03/16/2025 11:36 PM EDT [facility] Swab Both anterior nares / Unknown Non-blood Collection / Unknown 03/16/2025 9:38 PM EDT 03/16/2025 10:12 PM EDT us Bradley CREWS LAB MICROBIOLOGY - GENERAL ORDER HALEIGH Final Result Performing Organization Address [facility]/ZIP Co de Phone Number [facility] [address] [place] [address], [place] [phone] * Activated Partial Thromboplastin Time - STAT (03/16/2025 7:52 PM EDT) aPTT 30.3 24.1 - 39.3 sec LAB COAGULATION METHOD 03/16/2025 8:25 PM EDT [facility] Blood Venous blood specimen / Unknown Venipuncture / Unknown 03/16/2025 7:52 PM EDT 03/16/2025 8:12 PM EDT us Cody Abreu MD LAB BLOOD ORDERABLES Final Res ult Performing Organization Address [facility] Co de Phone Number [facility] [address] [place] [address], [place] [phone] * Prothrombin Time with INR - STAT (03/16/2025 7:52 PM EDT) Protime 13.2 10.6 - 13.9 sec LAB COAGULATION METHOD 03/16/2025 8:25 PM EDT [facility] INR 1.1 LAB COAGULATION METHOD 03/16/2025 8:25 PM EDT [facility] Blood Venous blood specimen / Unknown Venipuncture / Unknown 03/16/2025 7:52 PM EDT 03/16/2025 8:12 PM EDT us Cody Abreu MD LAB BLOOD ORDERABLES Final Res ult Performing Organization Address [facility]/ZIP Co de Phone Number [facility] [address] [place] [address], [place] [phone] * Vascular US duplex lower extremity venous bilateral (03/16/2025 7:41 PM EDT) Anatomical Region Laterality Modality Vascular, Abdomen Ultrasound 03/16/2025 8:12 PM EDT Addenda Addendum by Kerry Ferreira MD on 03/16/2025 8:16 PM EDT ADDENDUM: This report was discussed with CODY ABREU MD on Mar 16, 2025 20:16:00 EDT. This document has been electronically signed by: Darya Oliveros on 03/16/2025 20:16:50 Impressions 03/16/2025 8:12 PM EDT 1. Occlusive deep vein thrombosis involving the right superficial femoral vein, popliteal vein and gastrocnemius vein, peroneal vein and posterior tibial vein. 2. No evidence of deep vein thrombosis in the left lower extremity. This document has been electronically signed by: Kerry Ferreira MD on 03/16/2025 20:12:39 Narrative 03/16/2025 8:12 PM EDT INDICATION: edema Venous duplex ultrasound bilateral lower extremity Comparison: None provided Findings: Occlusive deep vein thrombosis involving the right superficial femoral vein, popliteal vein and gastrocnemius vein, peroneal vein and posterior tibial vein. No evidence of deep vein thrombosis in the left lower extremity. No popliteal cyst. Procedure Note Kerry Ferreira MD - 03/16/2025 INDICATION: edema Venous duplex ultrasound bilateral lower extremity Comparison: None provided Findings: Occlusive deep vein thrombosis involving the right superficial femoral vein, popliteal vein and gastrocnemius vein, peroneal vein and posterior tibial vein. No evidence of deep vein thrombosis in the left lower extremity. No popliteal cyst. IMPRESSION: 1. Occlusive deep vein thrombosis involving the right superficialfemoral vein, popliteal vein and gastrocnemius vein, peroneal vein and posterior tibial vein. 2. No evidence of deep vein thrombosis in the left lower extremity. This document has been electronically signed by: Kerry Ferreira MD on 03/16/2025 20:12:39 Cody Abreu MD CV VASCULAR PROCEDURES Edited Result - Final * CT Angio Chest wo and/or w Contrast (03/16/2025 6:36 PM EDT) Anatomical Region Laterality Modality Body Computed Tomogra phy 03/16/2025 7:12 PM EDT Addenda Addendum by Maura Alex MD on 03/16/2025 7:17 PM EDT ADDENDUM: This report was discussed with BRADY ROSS on Mar 16, 2025 19:16:00 EDT. This document has been electronically signed by: Kenia Solorio on 03/16/2025 19:17:53 Impressions 03/16/2025 7:12 PM EDT 1. Extensive bilateral pulmonary embolism as described. No saddle embolus. 2. Findings suggestive of right heart strain. This document has been electronically signed by: Maura Alex MD on 03/16/2025 19:12:45 Narrative 03/16/2025 7:12 PM EDT INDICATION: evaluate for pulmonary embolism CT angiography chest with contrast. 3D Postprocessing. Comparison: DX - XR CHEST 2 VW - 03/16/25 17:01 EDT Findings: The heart size is normal. RV/LV ratio is abnormal (greater than 1). The thoracic aorta is normal caliber. Extensive intraluminal filling defects are demonstrated in bilateral upper lobes, lower lobes and right middle lobe pulmonary arteries extending into the arterial branches. No evidence of saddle embolus straddling the bifurcation. Main pulmonary artery within normal limits in size. No consolidation, pleural effusion or pneumothorax. Minimal bilateral dependent atelectasis. No hilar, mediastinal or axillary adenopathy. Thyroid and thoracic esophagus within normal limits. The upper abdomen demonstrates no acute findings. No acute fractures. Degenerative changes in mid to lower thoracic spine. Procedure Note Maura Alex MD - 03/16/2025 INDICATION: evaluate for pulmonary embolism CT angiography chest with contrast. 3D Postprocessing. Comparison: DX - XR CHEST 2 VW - 03/16/25 17:01 EDT Findings: The heart size is normal. RV/LV ratio is abnormal (greater than 1). The thoracic aorta is normal caliber. Extensive intraluminal filling defects are demonstrated in bilateralupper lobes, lower lobes and right middle lobe pulmonary arteries extendinginto the arterial branches. No evidence of saddle embolus straddling the bifurcation. Main pulmonary artery within normal limits in size. No consolidation, pleural effusion or pneumothorax. Minimal bilateral dependent atelectasis. No hilar, mediastinal or axillary adenopathy. Thyroid and thoracic esophagus within normal limits. The upper abdomen demonstrates no acute findings. No acute fractures. Degenerative changes in mid to lower thoracic spine. IMPRESSION: 1. Extensive bilateral pulmonary embolism as described. No saddleembolus. 2. Findings suggestive of right heart strain. This document has been electronically signed by: Maura Alex MD on 03/16/2025 19:12:45 Cody Abreu MD IMG CT PROCEDURES Edited Resul t - Final * ECG 12 lead (03/16/2025 6:16 PM EDT) Only the most recent of2 resultswithin the time period is included. Pathologist [facility] Ventricular Rate ECG 115 BPM GEMUSE Atrial Rate 115 BPM GEMUSE P-R Interval 150 ms GEMUSE QRS Duration 96 ms GEMUSE Q-T Interval 336 ms GEMUSE QTc 464 ms GEMUSE P Wave Vanlue 53 degrees GEMUSE R Vanlue 51 degrees GEMUSE T Vanlue 28 degrees GEMUSE ECG Interpretation Sinus tachycardia Otherwise normal ECG When compared with ECG of 16-MAR-2025 16:11, No significant change was found Confirmed by MD SUELLEN, KARI ([id number]) on 03/16/2025 7:23:50 PM GEMUSE 03/16/2025 6:16 PM EDT 03/16/2025 7:23 PM EDT Cody Abreu MD ECG ORDERABLES Final Result GEMUSE * (ABNORMAL) Troponin I high sensitivity (03/16/2025 5:16 PM EDT) Only the most recent of2 resultswithin the time period is included. Pathologist [facility] High Sensitivity Troponin I 207(HH) <=79 ng/L LAB CHEMISTRY METHOD 03/16/2025 6:06 PM EDT [facility] Blood Venous blood specimen / Unknown Venipuncture / Unknown 03/16/2025 5:16 PM EDT 03/16/2025 5:26 PM EDT [facility] - 03/16/2025 6:06 PM EDT High levels of biotin in samples may falsely decrease hsTroponin values. Use caution when interpreting hsTroponin results in patients taking biotin who exhibit renal impairment (eGFR <60) or in patients taking more than 20 mg/day of biotin. us Cody Abreu MD LAB BLOOD ORDERABLES Final Res ult Performing Organization Address [facility]/ZIP Co de Phone Number [facility] [address] [place] [address], [place] [phone] * (ABNORMAL) D-Dimer (Quantitative) (03/16/2025 5:16 PM EDT) D-Dimer, Quant (D-DU) 9,140(H) <=230 ng/mL DDU LAB COAGULATION METHOD 03/16/2025 5:45 PM EDT [facility] Blood Venous blood specimen / Unknown Venipuncture / Unknown 03/16/2025 5:16 PM EDT 03/16/2025 5:26 PM EDT [facility] - 03/16/2025 5:45 PM EDT D-Dimer <230 ng/mL (D-Dimer units) is the threshold for exclusion of DVT/PE. D-Dimer may be elevated in: Critically ill, severely infected, trauma patients, DIC, acute CVA, acute [place], unstable angina, AF, old age, , and smoking. D-Dimer may be decreased with: Initiation of heparin therapy and oral anticoagulants. us Cody Abreu MD LAB BLOOD ORDERABLES Final Res ult Performing Organization Address [facility]/ZIP Co de Phone Number [facility] [address] [place] [address], [place] [phone] * XR Chest 2 Views (03/16/2025 5:07 PM EDT) Anatomical Region Laterality Modality Body Radiographic Kathy ging 03/16/2025 7:13 PM EDT Impressions 03/16/2025 7:13 PM EDT 1. No acute findings. This document has been electronically signed by: Maura Alex MD on 03/16/2025 19:13:09 Narrative 03/16/2025 7:13 PM EDT INDICATION: chest pain 2 view chest x-ray Comparison: None provided Findings: Heart size is normal. Pulmonary vasculature within normal limits. No consolidation, pleural effusion or pneumothorax. No acute fracture. Procedure Note Maura Alex MD - 03/16/2025 INDICATION: chest pain 2 view chest x-ray Comparison: None provided Findings: Heart size is normal. Pulmonary vasculature within normal limits. No consolidation, pleural effusion or pneumothorax. No acute fracture. IMPRESSION: 1. No acute findings. This document has been electronically signed by: Maura Alex MD on 03/16/2025 19:13:09 us Cody Abreu MD IMG XR PROCEDURES Final Result * Thyroid Stimulating Hormone (TSH) (03/16/2025 4:30 PM EDT) TSH 1.78 0.40 - 4.00 mcIU/mL LAB CHEMISTRY METHOD 03/16/2025 8:37 PM EDT [facility] Blood Venous blood specimen / Unknown Venipuncture / Unknown 03/16/2025 4:30 PM EDT 03/16/2025 5:25 PM EDT us Cody Abreu MD LAB BLOOD ORDERABLES Final Res ult [facility] [address] [place], [place] [id number], * B-type natriuretic peptide (03/16/2025 4:30 PM EDT) BNP 33 <=100 pcg/mL LAB CHEMISTRY METHOD 03/16/2025 6:01 PM EDT [facility] Blood Venous blood specimen / Unknown Venipuncture / Unknown 03/16/2025 4:30 PM EDT 03/16/2025 5:25 PM EDT us Cody Abreu MD LAB BLOOD ORDERABLES Final Res ult [facility] [address] [place] [address], [place] [phone] * Lipase (03/16/2025 4:30 PM EDT) Pathologist [facility] Lipase 20 13 - 75 unit/L LAB CHEMISTRY METHOD 03/16/2025 5:51 PM EDT [facility] Blood Venous blood specimen / Unknown Venipuncture / Unknown 03/16/2025 4:30 PM EDT 03/16/2025 5:25 PM EDT us Cody Abreu MD LAB BLOOD ORDERABLES Final Res ult [facility] [address] [place] [address], [place] [phone] * (ABNORMAL) Comprehensive metabolic panel (03/16/2025 4:30 PM EDT) Pathologist [facility] Sodium 137 133 - 145 mmol/L LAB CHEMISTRY METHOD 03/16/2025 5:51 PM EDT [facility] Potassium 4.2 3.5 - 5.5 mmol/L LAB CHEMISTRY METHOD 03/16/2025 5:51 PM EDT [facility] Chloride 104 96 - 110 mmol/L LAB CHEMISTRY METHOD 03/16/2025 5:51 PM EDT [facility] CO2 27 21 - 32 mmol/L LAB CHEMISTRY METHOD 03/16/2025 5:51 PM EDT [facility] Anion Gap 6 3 - 11 LAB CHEMISTRY METHOD 03/16/2025 5:51 PM EDT [facility] Glucose 165(H) 70 - 100 mg/dL LAB CHEMISTRY METHOD 03/16/2025 5:51 PM [facility] BUN 8 5 - 25 mg/dL LAB CHEMISTRY METHOD 03/16/2025 5:51 PM [facility] Creatinine 1.01 0.70 - 1.30 mg/dL LAB CHEMISTRY METHOD 03/16/2025 5:51 PM [facility] eGFR 91 >=60 mL/min/1. 73m2 LAB CHEMISTRY METHOD 03/16/2025 5:51 PM [facility] Comment:Calculation based on the Chronic Kidney Disease Epidemiology Collaboration (CKD-EPI) equation refit without adjustment for race. BUN/Creatinine Ratio 7.9 LAB CHEMISTRY METHOD 03/16/2025 5:51 PM [facility] Calcium 9.3 8.5 - 10.5 mg/dL LAB CHEMISTRY METHOD 03/16/2025 5:51 PM [facility] AST (SGOT) 8(L) 10 - 42 unit/L LAB CHEMISTRY METHOD 03/16/2025 5:51 PM [facility] ALT (SGPT) 21 10 - 60 unit/L LAB CHEMISTRY METHOD 03/16/2025 5:51 PM [facility] Alkaline Phosphatase 73 42 - 121 unit/L LAB CHEMISTRY METHOD 03/16/2025 5:51 PM [facility] Total Protein 7.5 6.0 - 8.0 g/dL LAB CHEMISTRY METHOD 03/16/2025 5:51 PM [facility] Albumin 3.7 3.2 - 5.0 g/dL LAB CHEMISTRY METHOD 03/16/2025 5:51 PM [facility] Total Bilirubin 0.6 0.0 - 1.4 mg/dL LAB CHEMISTRY METHOD 03/16/2025 5:51 PM [facility] Blood Venous blood specimen / Unknown Venipuncture / Unknown 03/16/2025 4:30 PM EDT 03/16/2025 5:25 PM EDT us Cody Abreu MD LAB BLOOD ORDERABLES Final Res ult [facility] [address] [place] [address], * [place] CRITICAL CARE 30-74 MINUTES (03/16/2025 4:06 PM EDT) Narrative Cody Abreu MD - 03/16/2025 4:06 PM EDT Cody Abreu MD 03/16/2025 8:35 PM Critical Care Performed by: Cody Abreu MD Authorized by: Cody Abreu MD Critical care provider statement: Critical care time (minutes): 36 Total face to face critical care time (minutes): 36 Critical care time was exclusive of: Separately billable procedures and treating other patients Critical care was time spent personally by me on the following activities: Development of treatment plan with patient or surrogate, discussions with consultants, evaluation of patient's response to treatment, ordering and review of laboratory studies, ordering and review of radiographic studies, re-evaluation of patient's condition, review of old charts, ordering and performing treatments and interventions, examination of patient and pulse oximetry Face to face critical care was time spent personally by me on the following activities: Re-evaluation of patient's condition, pulse oximetry, obtaining history from patient or surrogate, interpretation of cardiac output measurements, examination of patient and evaluation of patient's response to treatment I assumed direction of critical care for this patient from another provider in my specialty: no Care discussed with: admitting provider us Cody Abreu MD IN CLINIC/BEDSIDE ORDERABLES F inal Result from Last 3 Months Advance Directives Documents on File Type Date Recorded Patient Field Training Manager Expl anation Advance Directives and Living Will 03/18/2025 8:27 AM Marifer Bajwa Health Care Proxy * Full Code - Confirmed (Latest Code Status on File) Date Activated Date Inactivated Comments 03/17/2025 3:30 PM 03/18/2025 6:07 PM This code status was ascertained in the following way: Code status discussion: discussion with patient To update the patient's code status, place a code status order. Do not modify or discontinue any currently active code status orders. * Full Code - Default Date Activated Date Inactivated Comments 03/16/2025 8:15 PM 03/17/2025 3:30 PM This is or boo is used when code status has not been discussed with the patient, or code status is otherwise unknown/unconfirmed To update the patient's code status, place a code status order. Do not modify or discontinue any currently active code status orders. Healthcare Agents on File Name Relationship Healthcare Agent Relationsla p Communication Marifer Bajwa Partner Health Care Agent Care Teams Flow Nurse Relationship Specialty Start Date End Date Physician, No Pcp PCP - General 03/16/25
== END 2025-04-22 09:55 | disposition home or self-care (01) ==
LOC: HO.HMCFMS 09:27
PROVIDERS: PCP Student in an Organized Health Care Education/Training Program; Visit Provider Student in an Organized Health Care Education/Training Program
DX: I26.99 Other pulmonary embolism without acute cor pulmonale (principal); E11.9 Type 2 diabetes mellitus without complications; Z87.891 Personal history of nicotine dependence; G47.9 Sleep disorder, unspecified

== ENCOUNTER 2025-05-06 13:40 | Outpatient (AMB) | payer OTHER, SELFPAY ==
--- NOTE | 2025-05-06 13:42 | A.OFFPC_ITS ---
Vital Signs 05/06/25 13:48 Height 5 ft 8.25 in Weight 234 lb BMI 35.3 BP 137/88 Blood Pressure Location Rt brachial Position Sitting Respiration 16 Pulse 86 Pulse Source Pulse Oximeter Temp 97.8 F Temp Source Oral Pulse Oximetry (%) 100 Oxygen Delivery Method Room Air Intake Visit Reasons: 2 wk - lab review Intake Note: Patient present for lab review. Dye Colorist Dyer Required: No Accompanied by: Self / Same As Patient Allergies No Known Allergies Allergy (Verified 05/06/25 13:47) Medication List - Last Reconciled 05/08/25 by Carlito Pichardo MD apixaban 5 mg PO BID ascorbic acid (vitamin C) 500 mg PO DAILY empagliflozin (Jardiance) 10 mg PO DAILY ferrous fumarate 324 mg PO DAILY mecobalamin (vitamin B12) 1,000 mcg sublingual BEDTIME metformin 1,000 mg PO BID rosuvastatin 20 mg PO DAILY Tobacco use date assessed: 04/22/25 Dental Screening Dental Screen Date: 04/22/25 HPI HPI Comments History of Present Illness Details History of Present Illness The patient is a 49 year old male presenting for a follow-up visit to review laboratory results. Type 2 diabetes mellitus: The patient was diagnosed with type 2 diabetes in February. He is currently taking metformin 500 mg twice daily. Recent laboratory results revealed a random glucose of 127 and an A1c of 7.8%, indicating the condition is not well- controlled. History of pulmonary embolism and deep vein thrombosis: The patient has a history of pulmonary embolism (PE) and deep vein thrombosis (DVT). He is currently on apixaban 5 mg for this condition. Hyperlipidemia: The patient's recent lab work showed an LDL cholesterol level of 129. Anemia: Recent laboratory results showed low hemoglobin and hematocrit. The patient recently submitted a stool sample for a colonoscopy test, and results are pending. Vitamin B12 deficiency: The patient's vitamin B12 level was 286, which is on the lower side of the normal range. Medications: - Apixaban 5 mg, for pulmonary embolism and deep vein thrombosis. - Metformin 500 mg twice a day, for type 2 diabetes. Social History: - Nutrition: The patient expressed that it has been stressful to know what to eat with his new diagnosis of diabetes, and a referral to a elevator conductor was made to discuss healthier eating and lifestyle modification. Family History: - Mother: History of a failed kidney tra nsplant. Diagnostic Results: - Random Glucose: 127. - A1c: 7.8%. - Vitamin B12: 286. - LDL Cholesterol: 129. - Hemoglobin and Hematocrit: Low. - Complete blood count: Good. - Kidney function: Good. - Colonoscopy stool test: Pending. Past Medical History - Type 2 diabetes mellitus, diagnosed in February. - Deep vein thrombosis. - Pulmonary embolism. Health Maintenance - The patient recently submitted a stool test for colon cancer screening, with r esults pending. - A referral was placed for a diabetic e eanator to provide information on managing diabetes. - A referral was placed for a nutritioni st to provide guidance on diet and lifestyle modifications. med rec summary This case summary concerns a 49-year-old male with no significant reported past medical history who presented to the [facility] emergency department on March 16, 2025. The patient's chief complaints were the acute onset of sharp, intermittent central chest pain, diaphoresis, headache, and right lower extremity pain, all of which began on the morning of his admission. The patient denied any personal history of blood clots, recent prolonged immobility, or recent travel. His family history was uncertain regarding clotting disorders, although he mentioned a maternal cousin had a history of a clot.?He reported a minimal and recent smoking history of two cigarettes per day for 2-3 months and denied alcohol or illicit drug use. He stated he had not seen a doctor in many years. Upon initial examination in the emergency department, the patient was found to be anxious and tachycardic, with a heart rate up to 130 bpm.?Initial laboratory studies were significant for an elevated troponin, a highly elevated D-dimer of over 9000, leukocytosis, and hyperglycemia.?Electrocardiograms performed showed sinus tachycardia but were otherwise normal with no significant changes noted between them. Diagnostic imaging confirmed the cause of his symptoms. A CT angiogram of the chest revealed extensive bilateral pulmonary emboli with findings suggestive of right heart strain, though no saddle embolus was present.?A subsequent vascular ultrasound of the lower extremities demonstrated an occlusive deep vein thrombosis (DVT) involving multiple veins in the right leg, including the superficial femoral, popliteal, gastrocnemius, peroneal, and posterior tibial veins. There was no evidence of DVT in the left lower extremity. In addition to the thromboembolic events, the patient was newly diagnosed with diabetes mellitus, confirmed by an HbA1c of 8.9%, and a urinary tract infection caused by E. coli.?Despite the extensive clot burden, an echocardiogram on March 17, 2025, showed normal left and right ventricular size and systolic function, with no hemodynamically significant valve disease. The patient was admitted to the ICU for hemodynamic monitoring and initiated on an intravenous heparin drip for anticoagulation.?A vascular surgery consultation was obtained, which recommended against thrombolysis or other interventions at that time, favoring medical management.?His urinary tract infection was treated with intravenous antibiotics. During his stay, the patient remained hemodynamically stable and minimally symptomatic. The patient was discharged home in stable condition. His treatment plan included transitioning from heparin to an oral anticoagulant, apixaban (Eliquis), for the DVT and PE. He was also prescribed a course of oral cefdinir to complete treatment for his UTI and started on metformin for his newly diagnosed diabetes.?The prognosis was stable upon discharge, with recommendations for outpatient follow-up with hematology for a hypercoagulable workup and with a primary care provider for ongoing diabetes management. Final diagnoses upon discharge included extensive bilateral pulmonary embolism with right heart strain, occlusive right lower extremity deep vein thrombosis, new onset diabetes mellitus, and a urinary tract infection.?His discharge medications were apixaban, cefdinir, and metformin. He had no documented home medications prior to this admission. [facility] Medical History (Updated 05/08/25 @ 17:17 by Carlito Pichardo MD) History of tobacco use Diabetes type 2 Pulmonary embolism Sleep disturbance Bilateral pulmonary embolism Deep vein thrombosis Surgical History History of surgery on arm Family History Mother Kidney disease Maternal Grandmother Diabetes Social History (Updated 05/06/25 @ 13:48 by Anthony Gibson CMA) Housing: House Alcohol intake: never Patient Tobacco Use Status: Never used Tobacco e-Cigarette/Vaping Use: Never Used Second Hand Smoke Exposure: No service: No Current occupational status: employed Current occupation: glazer, 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 1. Little interest or pleasure in doing things: not at all 2. Feeling down, depressed, or hopeless: several days 3. Trouble falling or staying asleep, or sleeping too much: more than half the days 4. Feeling tired or having little energy: several days 5. Poor appetite or overeating: several days 6. Feeling bad about yourself - or that you are a failure or have let yourself or your family down: not at all 7. Trouble concentrating on things, such as reading the newspaper or watching television: not at all 8. Moving or speaking so slowly that other people could have noticed. Or the opposite - being so fidgety or restless that you have been moving around a lot more than usual: several days 9. Thoughts that you would be better off or of hurting yourself in some way: not at all Total score: 6 Depression Screening Interpretation: Negative Depression Screening Done: Yes 60008 - PHQ-9 Billing: Yes Source: Developed by Drs. Adonis Bourgeois, Fanny Bills, Hansel Brown and colleagues, with an educational alva from [employer]. Thrive Questionnaire Date Thrive assessed: 04/22/25 I am a: Patient What is your living situation today?: I have a steady place to live Within the past 12 months, did the food you bought not last and you didn't have the money to get more?: Never true Within the past 12 months, did you worry whether your food would run out before you got money to buy more?: Never true Do you have trouble paying for medicines?: I choose not to answer this question Do you have trouble getting transportation to medical appointments?: No Do you have trouble paying your heating and electricity bill?: I choose not to answer this question Do you have trouble taking care of your child, family member or friend?: No Do you have trouble with day-to-day activities such as bathing, preparing meals, shopping, managing finances, etc.?: No Are you currently unemployed and looking for a job?: No Are you interested in more education?: No Currently or been in a relationship where the following occur: No concerns reported THRIVE Score: 0 AUDIT C Alcohol Use Questionnaire (AUDIT-C) 1. How often do you have a drink containing alcohol?: Never Total Score: 0 RADHA-7 AMB Questionnaire RADHA-7 Date RADHA - 7 assessed: 04/22/25 Feeling nervous, anxious, or on edge: 3 = Nearly every day Not being able to stop or control worryin = Several days Worrying too much about different things: 1 = Several days Trouble relaxin = Several days Being so restless that it is hard to sit still: 1 = Several days Becoming easily annoyed or irritable: 1 = Several days Feeling afraid as if something awful might happen: 1 = Several days Total RADHA-7 score (0-4 normal; 5-9 mild; 10-14 moderate; 15-21 severe): 9 Source: Developed by Drs. Adonis Bourgeois, Fanny Bills, Hansel Brown and colleagues, with an educational alva from [employer]. RADHA-7 Assessment Billing RADHA-7 Assessment Tool: RADHA-7 Assessment 28768 Review of Systems Narrative Review of Systems - General: Reports feeling overwhelmed. - Neurological: Denies dizziness and lightheadedness. - All other systems reviewed and are negative. 10-point ROS reviewed and negative except as noted in HPI Physical exam (Primary Care) Vital Signs: Last Vital Signs Temp 97.8 F 05/06/25 13:48 Pulse 86 05/06/25 13:48 Resp 16 05/06/25 13:48 BP 137/88 05/06/25 13:48 Pulse Ox 100 05/06/25 13:48 Oxygen Delivery Method Room Air 05/06/25 13:48 BMI result Body Mass Index 35.3 Tobacco/Smoking Status: Tobacco use Status Tobacco use date assessed 04/22/25 05/06/25 13:43 Patient Tobacco Use Status Never used Tobacco 05/06/25 13:48 e-Cigarette/Vaping Use Never Used 05/06/25 13:48 PHQ-9: PHQ-9 Score PHQ-9: Total score 6 05/06/25 13:43 Depression Screening Interpretation: Negative Thrive Assessment: Date of Thrive Assessment Date Thrive assessed 04/22/25 05/06/25 13:43 Currently or been in a relationship where the following occur: No concerns reported Narrative Physical Exam General: Well-appearing, in no acute distress. Vital signs: Within normal limits. HEENT: Normocephalic, atraumatic. PERRLA, EOMI. Conjunctiva clear, sclera anicteric. Oropharynx clear, mucous membranes moist. TMs intact bilaterally. Neck: Supple, no lymphadenopathy, no thyromegaly, no JVD or carotid bruits. Cardiovascular: RRR, normal S1/S2, no murmurs, rubs, or gallops. Peripheral pulses 2+ and symmetric. No edema. Respiratory: Lungs clear to auscultation bilaterally, no wheezes, rales, or rhonchi. Normal effort. Abdomen: Soft, non-tender, non-distended. Normoactive bowel sounds. No hepatosplenomegaly, no masses. MSK: Full range of motion, no joint swelling or deformity. Normal gait. Skin: Warm, dry, intact. No rashes, lesions, or pallor. Neuro: Alert and oriented x3. Cranial nerves II-XII intact. Strength 5/5 throughout. Sensation intact. Reflexes 2+ symmetric. Normal coordination and gait. Psych: Appropriate mood and affect. Normal judgment and insight. Coding Level of Care Code Est Pt Level 3 (10638) Add On Problem Visit Only Diagnoses Diabetes type 2 E11.9 Pulmonary embolism I26.99 Hyperlipidemia E78.5 Anemia D64.9 Vitamin B12 deficiency E53.8 Class 2 obesity E66.812 Additional Codes RADHA-7 Assessment Billing - RADHA-7 Assessment Tool: RADHA-7 Assessment 87258 ([id number]) PHQ-9 - 03573 - PHQ-9 Billing: Yes ([id number]) Assessment & Plan Assessment & Plan (1) Diabetes type 2: Code(s): E11.9 - Type 2 diabetes mellitus without complications Category: Medical (2) Pulmonary embolism: Code(s): I26.99 - Other pulmonary embolism without acute cor pulmonale Category: Medical (3) Hyperlipidemia: Code(s): E78.5 - Hyperlipidemia, unspecified Category: Medical (4) Anemia: Code(s): D64.9 - Anemia, unspecified Category: Medical (5) Vitamin B12 deficiency: Code(s): E53.8 - Deficiency of other specified B group vitamins Category: Medical (6) Class 2 obesity: Code(s): E66.812 - Obesity, class 2 Category: Medical Plan Consent The risks, benefits, and alternatives of initiating new medications including metformin, an SGLT2 inhibitor (empagliflozin), rosuvastatin, and iron were discussed with the patient. This included discussing potential side effects such as increased urination with empagliflozin, symptoms of hypoglycemia, and constipation with iron supplementation. The benefits, including cardiac and renal protection from empagliflozin and cardiovascular risk reduction from rosuvastatin, were also reviewed. The patient verbally agreed to the proposed treatment plan. Patient was informed and verbally consented to the use of an ambient scribe for clinic note documentation during this visit. Plan 1. Type 2 Diabetes Mellitus - The patient's A1c of 7.8% indicates that his diabetes is uncontrolled on his current regimen. - The metformin dose will be increased to 1000 mg twice daily. - Empagliflozin (Jardiance) 10 mg once daily will be initiated for additional glycemic control and for its cardiovascular and renal protective benefits. - The patient was counseled on the risk of hypoglycemia and advised to return if he feels dizzy or lightheaded. - Referrals will be made to a community nutrition educator and a elevator conductor. - Labs will be rechecked in three months. 2. Hyperlipidemia - The patient's LDL of 129 is above the recommended goal of <70 for an individual with diabetes. - Rosuvastatin 20 mg at night will be initiated to lower cholesterol and reduce cardiovascular risk. 3. Anemia - The patient's low hemoglobin and hematocrit could be due to poor diet or a gastrointestinal bleed. - Awaiting results of a recent colonoscopy stool test. - The patient will start iron supplementation along with vitamin C to enhance absorption. - The patient was counseled to take iron on an empty stomach and to expect dark stools. - He was also advised to increase water and fiber intake to prevent constipation, and to use Miralax or prunes if needed. 4. Vitamin B12 Deficiency - The patient's B12 level is on the lower side of normal, which can be a side effect of metformin. - He will begin taking a vitamin B12 supplement nightly. Discussion Notes I reviewed the patient's recent lab results with him. I explained that his A1c of 7.8% indicates his diabetes is not well-controlled and that the goal is below 6.5%. I recommended increasing his metformin dose and adding empagliflozin, explaining that the latter provides heart and kidney protection, though it will cause him to urinate more. I also discussed that his LDL cholesterol of 129 is too high for a person with diabetes and that the goal is below 70, recommending rosuvastatin. We discussed his low-normal vitamin B12 level as a possible side effect of metformin, and I recommended supplementation. I also addressed his low hemoglobin and hematocrit, explaining the need to rule out a GI bleed, and noted he already submitted a stool test. I recommended starting iron and vitamin C, and counseled him on potential side effects like constipation and dark stools. I advised him on how to manage medication scheduling and to return if he experiences symptoms of hypoglycemia like dizziness. Finally, I informed him that he would be contacted by a community nutrition educator and a elevator conductor to provide further support and education, with a plan to repeat labs in three months. Patient Instructions - Take Metformin 1000 mg twice per day, once in the morning and once at night. - Take Jardiance (empagliflozin) 10 mg once a day in the morning. This medication may make you urinate more often. - Take Rosuvastatin 20 mg once a day at night for your cholesterol. - Take a vitamin B12 supplement every night. - Take your Vitamin C supplement before you take your iron supplement. - Take your iron supplement either one hour before a meal or two hours after a m eal. - To prevent constipation from the iron, drink more water, increase fiber, and eat prunes or use MiraLAX if needed. - It is normal for your stool to look dark while taking iron. - Consider buying a pill box to help organize your morning and evening medications. - If you feel dizzy or lightheaded, have some candy and contact the office. - You will receive a call from a community nutrition educator and a elevator conductor to schedule appointments. - You will need to have new lab work done in three months. Medical Decision Making The patient is a 49-year-old male with a new diagnosis of type 2 diabetes, presenting for review of initial labs. His A1c of 7.8% indicates that his diabetes is uncontrolled with the initial dose of metformin 500 mg twice daily. My decision is to intensify his glycemic regimen by increasing metformin to 1000 mg twice daily and adding empagliflozin 10 mg daily. The choice of empagliflozin, an SGLT2 inhibitor, is based on its efficacy in lowering A1c and its proven cardiovascular and renal protective benefits, which are crucial given his diabetes diagnosis serving as a significant cardiac risk factor. His LDL of 129 is well above the goal of <70 for a patient with diabetes, necessitating initiation of high-intensity statin therapy. Rosuvastatin 20 mg is started for primary prevention of atherosclerotic cardiovascular disease. The patient's low- normal vitamin B12 level is likely secondary to metformin use, so prophylactic supplementation is prudent to prevent deficiency. The finding of low hemoglobin and hematocrit raises concern for anemia. While a dietary cause is possible, an occult GI bleed must be considered, and it is reassuring that the patient has already submitted a stool test for colonoscopy. Empiric iron and vitamin C supplementation is initiated pending further workup. Given the complexity of the new regimen and diagnoses, referrals to a community nutrition educator and elevator conductor are essential for patient success. Follow-up labs in three months will be necessary to assess response to therapy. Total Time Statement 20 min Total time spent caring for the patient today includes pre-visit chart review, documentation, review of laboratory and diagnostic imaging results, medication reconciliation, medically necessary evaluation, counseling on diagnoses, care coordination, ordering appropriate tests and medications, review of tests performed by other providers, reporting test results to the patient, and communication with other healthcare providers. Orders: Referrals Nurse Navigator Referral E11.9 - Type 2 diabetes mellitus without complications Nutrition/Dietitian Referral E11.9 - Type 2 diabetes mellitus without complications Medications: New ascorbic acid (vitamin C) 500 mg PO DAILY 90 tabs 0RF ferrous fumarate 324 mg PO DAILY 90 tabs 0RF metformin 1,000 mg PO BID 180 tabs 0RF empagliflozin (Jardiance) 10 mg PO DAILY 90 tabs 0RF rosuvastatin 20 mg PO DAILY 90 tabs 0RF mecobalamin (vitamin B12) place tablet under tongue and allow to dissolve for at least30 secs before swallowing 1,000 mcg sublingual BEDTIME 90 tabs 0RF Discontinued metformin Discontinued Reason: Doctor's Order 500 mg PO BID 180 tabs 0RF
[2025-05-06 13:48] VITALS: BP 137/88; PULSE 86; RESP 16; TEMP 36.6; O2SAT 100; BMI 35.3
--- OUTSIDE RECORDS SUMMARY | 2025-05-06 17:53 | XMS_ITS | Clinical Summary ---
Author Organization [facility] Address [address] [place] [address] Phone Care Team Providers Care Counseling Department Chair Name Role Phone Physician, No Pcp Primary [...] Noted Date Diagnosed Date Bilateral pulmonary embolism 03/16/2025 Deep vein thrombosis (DVT) of right lower extrem ity 03/16/2025 Encounters Date Type Department Care Team Description 03/16/2025 4:32 PM EDT - 03/18/2025 4:07 PM EDT Hospital Encounter [facility] [address] [place] [address] Cody Abreu MD Loiacono, Laurie, MD Bonacum, Julia T, MD Flores, Carlos M, MD Kela, Yovani Win MD Bilateral pulmonary embolism (CMS/HCC V24, CMS/HCC V28) (Primary Dx); Chest pain, unspecified type; Other acute pulmonary embolism, unspecified whether acute cor pulmonale present (CMS/HCC V24, [facility] V28) Discharge Disposition: Home or Self Care from Last 3 Months Social History Tobacco Use Types Packs/Day Years Used Date Smoking Tobacco: Some Days Cigarettes 0.5 0.5 Started: 11/2024 Passive Smoke Exposure: Current Smokeless [...] Record ed Within the last 3 months, doire green many times did you visit the emergency [...] care for your loved ones. For example, child development assistant or elderly care for an older adult? [...] Orientation Straight 03/17/2025 12 :45 AM EDT Last Filed Vital Signs Vital Sign Reading [...] ECG 12-LEAD STAT 03/16/2025 4:11 PM EDT CO CRITICAL CARE 30-74 MINUTES Routine 03/16/2025 4:06 PM EDT from Last 3 Months Results * ECG-Annotated (03/19/2025) us Provider Onbase MD ECG ORDERABLES Final Result * (ABNORMAL) POCT Glucose, blood (03/18/2025 11:32 AM EDT) Only the most recent of10 resultswithin the time period is included. Glucose POCT 232(H) 70 - 100 mg/dL 03/18/2025 11:33 AM EDT [facility] Blood Capillary blood specimen / Unknown 03/18/2025 11:32 AM EDT 03/18/2025 11:34 AM EDT us Yovani Heck MD LAB POINT O F CARE TEST DOCKED DEVICE UNSOLICITED RESULTS Final Result Performing Organization Address [facility] Co de Phone Number [facility] [address] [place] [address], [place] [phone] * Phosphorus (03/18/2025 4:04 AM EDT) Only the most recent of2 resultswithin the time period is included. [facility] Phosphorus 3.2 2.5 - 4.5 mg/dL LAB CHEMISTRY METHOD 03/18/2025 5:13 AM EDT [facility] Blood Venous blood specimen / Unknown Venipuncture / Unknown 03/18/2025 4:04 AM EDT 03/18/2025 5:13 AM EDT us Estrellita Medina MD LAB BLOOD ORDERABLES Final Re sult Performing Organization Address [facility] de Phone Number [facility] [address] [place] [address], [place] [phone] * Magnesium (03/18/2025 4:04 AM EDT) Only the most recent of3 resultswithin the time period is included. [facility] Magnesium 2.1 1.9 - 2.6 mg/dL LAB CHEMISTRY METHOD 03/18/2025 5:13 AM EDT [facility] Blood Venous blood specimen / Unknown Venipuncture / Unknown 03/18/2025 4:04 AM EDT 03/18/2025 5:13 AM EDT us Estrellita Medina MD LAB BLOOD ORDERABLES Final Re sult Performing Organization Address [facility] Co de Phone Number [facility] [address] [place] [address], [place] [phone] * (ABNORMAL) Hepatic function panel (03/18/2025 4:04 AM EDT) [facility] Total Protein 6.9 6.0 - 8.0 g/dL LAB CHEMISTRY METHOD 03/18/2025 5:34 AM [facility] Albumin 3.2 3.2 - 5.0 g/dL LAB CHEMISTRY METHOD 03/18/2025 5:34 AM [facility] Total Bilirubin 0.5 0.0 - 1.4 mg/dL LAB CHEMISTRY METHOD 03/18/2025 5:34 AM [facility] Bilirubin, Direct 0.1 0.0 - 0.3 mg/dL LAB CHEMISTRY METHOD 03/18/2025 5:34 AM [facility] Bilirubin, Indirect 0.4 0.0 - 1.1 mg/dL LAB CHEMISTRY METHOD 03/18/2025 5:34 AM [facility] Comment:Unable to calculate Indirect Bilirubin. ALT (SGPT) 18 10 - 60 unit/L LAB CHEMISTRY METHOD 03/18/2025 5:34 AM [facility] AST (SGOT) 7(L) 10 - 42 unit/L LAB CHEMISTRY METHOD 03/18/2025 5:34 AM [facility] Alkaline Phosphatase 65 42 - 121 unit/L LAB CHEMISTRY METHOD 03/18/2025 5:34 AM [facility] Blood Venous blood specimen / Unknown Venipuncture / Unknown 03/18/2025 4:04 AM EDT 03/18/2025 5:13 AM EDT us Estrellita Medina MD LAB BLOOD ORDERABLES Final Re sult [facility] [address] [place] [address], * (ABNORMAL) Basic metabolic panel (03/18/2025 4:04 AM EDT) Only the most recent of2 resultswithin the time period is included. Sodium 138 133 - 145 mmol/L LAB CHEMISTRY METHOD 03/18/2025 5:34 AM [facility] Potassium 4.4 3.5 - 5.5 mmol/L LAB CHEMISTRY METHOD 03/18/2025 5:34 AM [facility] Chloride 107 96 - 110 mmol/L LAB CHEMISTRY METHOD 03/18/2025 5:34 AM [facility] CO2 25 21 - 32 mmol/L LAB CHEMISTRY METHOD 03/18/2025 5:34 AM [facility] Anion Gap 6 3 - 11 LAB CHEMISTRY METHOD 03/18/2025 5:34 AM [facility] Glucose 163(H) 70 - 100 mg/dL LAB CHEMISTRY METHOD 03/18/2025 5:34 AM [facility] BUN 15 5 - 25 mg/dL LAB CHEMISTRY METHOD 03/18/2025 5:34 AM [facility] Creatinine 0.86 0.70 - 1.30 mg/dL LAB CHEMISTRY METHOD 03/18/2025 5:34 AM [facility] eGFR 105 >=60 mL/min/1. 73m2 LAB CHEMISTRY METHOD 03/18/2025 5:34 AM [facility] Comment:Calculation based on the Chronic Kidney Disease Epidemiology Collaboration (CKD-EPI) equation refit without adjustment for race. BUN/Creatinine Ratio 17.4 LAB CHEMISTRY METHOD 03/18/2025 5:34 AM [facility] Calcium 9.0 8.5 - 10.5 mg/dL LAB CHEMISTRY METHOD 03/18/2025 5:34 AM [facility] Blood Venous blood specimen / Unknown Venipuncture / Unknown 03/18/2025 4:04 AM EDT 03/18/2025 5:13 AM EDT us Estrellita Medina MD LAB BLOOD ORDERABLES Final Re sult [facility] [address] [place] [address], * (ABNORMAL) CBC auto differential (03/18/2025 4:03 AM EDT) Only the most recent of3 resultswithin the time period is included. [facility] WBC 10.3 4.8 - 10.8 K/mcL LAB HEMETOLOGY METHOD 03/18/2025 4:51 AM EDT [facility] RBC 5.10 4.50 - 5.50 M/mcL LAB HEMETOLOGY METHOD 03/18/2025 4:51 AM EDT [facility] Hemoglobin 13.2(L) 13.5 - 17.5 g/dL LAB HEMETOLOGY METHOD 03/18[facility]2025 4:[facility] Hematocrit 40.9(L) 42.0 - 54.0 % LAB HEMETOLOGY METHOD 03/18/2025 4:51 AM EDT [facility] MCV 79.6 79.0 - 98.0 FL LAB HEMETOLOGY METHOD 03/18/2025 4:51 AM EDT [facility] MCH 25.7(L) 27.0 - 32.0 pcg LAB HEMETOLOGY METHOD 03/18/2025 4:[facility] MCHC 32.3 32.0 - 37.0 g/dL LAB HEMETOLOGY METHOD 03/18/2025 4:51 AM EDT [facility] RDW 13.9 11.0 - 15.0 % LAB HEMETOLOGY METHOD 03/18/2025 4:51 AM EDT [facility] Platelets 166 130 - 400 K/mcL LAB HEMETOLOGY METHOD 03/18/2025 4:51 AM EDT [facility] MPV 10.3 7.0 - 11.0 FL LAB HEMETOLOGY METHOD 03/18/2025 4:51 AM EDT [facility] NRBC 0.0 <1.0 % LAB HEMETOLOGY METHOD 03/18/2025 4:51 AM [facility] NRBC Absolute 0.00 <0.10 K/mcL LAB HEMETOLOGY METHOD 03/18/2025 4:51 AM [facility] Neutrophils Relative 47.6 % LAB HEMETOLOGY METHOD 03/18/2025 4:51 AM [facility] Lymphocytes Relative 38.3 % LAB HEMETOLOGY METHOD 03/18/2025 4:51 AM [facility] Monocytes Relative 6.8 % LAB HEMETOLOGY METHOD 03/18/2025 4:51 AM [facility] Eosinophils Relative 6.4 % LAB HEMETOLOGY METHOD 03/18/2025 4:51 AM [facility] Basophils Relative 0.4 % LAB HEMETOLOGY METHOD 03/18/2025 4:51 AM [facility] Immature Granulocytes Relative 0.5 % LAB HEMETOLOGY METHOD 03/18/2025 4:51 AM [facility] Neutrophils Absolute 4.91 1.50 - 7.00 K/mcL LAB HEMETOLOGY METHOD 03/18/2025 4:51 AM [facility] Lymphocytes Absolute 3.94 1.00 - 5.00 K/mcL LAB HEMETOLOGY METHOD 03/18/2025 4:51 AM [facility] Monocytes Absolute 0.70 0.20 - 1.00 K/mcL LAB HEMETOLOGY METHOD 03/18/2025 4:51 AM [facility] Eosinophils Absolute 0.66(H) 0.00 - 0.50 K/mcL LAB HEMETOLOGY METHOD 03/18/2025 4:51 AM [facility] Basophils Absolute 0.04 0.00 - 0.20 K/mcL LAB HEMETOLOGY METHOD 03/18/2025 4:51 AM EDT [facility] Immature Granulocytes Absolute 0.05(H) 0.00 - 0.03 K/mcL LAB HEMETOLOGY METHOD 03/18/2025 4:51 AM EDT [facility] Blood Venous blood specimen / Unknown Venipuncture / Unknown 03/18/2025 4:03 AM EDT 03/18/2025 4:44 AM EDT Estrellita Medina MD LAB BLOOD ORDERABLES Final Re sult Performing Organization Address City/[facility]/ZIP Co de Phone Number [facility] [address] [place] [address], [place] [phone] * (ABNORMAL) Anti-Xa - Every 6 Hours (03/18/2025 4:03 AM EDT) Only the most recent of8 resultswithin the time period is included. Heparin Anti-Xa 0.71(H) 0.30 - 0.70 I Unit/mL LAB COAGULATION METHOD 03/18/2025 4:54 AM EDT [facility] Blood Venous blood specimen / Unknown Venipuncture / Unknown 03/18/2025 4:03 AM EDT 03/18/2025 4:44 AM EDT Narrative [facility] - 03/18/2025 4:54 AM EDT Therapeutic range listed is for Unfractionated Heparin. LMW Heparin therapeutic range: 0.50-1.20 IU/mL Estrellita Medina MD LAB BLOOD ORDERABLES Final Re sult [facility] [address] [place] [address], [place] [phone] * Lactate (03/18/2025 4:03 AM EDT) Lactate 0.9 0.4 - 2.0 mmol/L LAB CHEMISTRY METHOD 03/18/2025 5:12 AM EDT [facility] Blood Venous blood specimen / Unknown Venipuncture / Unknown 03/18/2025 4:03 AM EDT 03/18/2025 4:44 AM EDT us Estrellita Medina MD LAB BLOOD ORDERABLES Final Re sult Performing Organization Address [facility]/ZIP Co de Phone Number [facility] [address] [place] [address], * (ABNORMAL) Calcium, ionized (03/18/2025 4:03 AM EDT) Only the most recent of2 resultswithin the time period is included. [facility] Calcium Ionized 4.48(L) 4.50 - 5.30 mg/dL 03/18/2025 4:52 AM EDT [facility] Blood Venous blood specimen / Unknown Venipuncture / Unknown 03/18/2025 4:03 AM EDT 03/18/2025 4:44 AM EDT us Estrellita Medina MD LAB BLOOD ORDERABLES Final Re sult Performing Organization Address [facility] de Phone Number [facility] [address] [place] [address], [place] [phone] * Factor V leiden (03/17/2025 12:48 PM EDT) [facility] Factor V Leiden Mutation Negative 03/22/2025 1:36 PM EST [facility] Comment: The pathogenic F5 Leiden variant [...] DNA (2.5 ng/PCR reaction). Test performed at [facility], [address] [place] [address] Mell Roldan MD, PhD - Bobcat Operator Blood Venous blood specimen / Unknown Venipuncture / Unknown 03/17/2025 12:48 PM EDT 03/17/2025 1:11 PM EDT Estrellita Medina MD LAB MOLECULAR DIAGNOSTICS ORD ERABLES Final Result Performing Organization Address City/[facility]/ZIP Co de Phone Number [facility] [address] [place] [address] * Homocysteine, serum (03/17/2025 12:48 PM EDT) [facility] Homocysteine 9.2 3.2 - 10.7 mcmol/L LAB CHEMISTRY METHOD 03/17/2025 2:30 PM EDT [facility] Blood Venous blood specimen / Unknown Venipuncture / Unknown 03/17/2025 12:48 PM EDT 03/17/2025 1:11 PM EDT us Estrellita Medina MD LAB BLOOD ORDERABLES Final Re sult [facility] [address] [place] [address], [place] [phone] * (ABNORMAL) TRANSTHORACIC ECHOCARDIOGRAM (TTE) COMPLETE W/ CONTRAST (03/17/2025 10:10 AM EDT) [facility] LV EDV (A2C) 104 mL CV PACS [...] 55 mL CV PACS Left Atrium Minor [place] 4.7 cm CV PACS Left Atrium Major [place] 4.8 cm CV PACS LA Area Sys [...] Proximal 1.2 cm CV PACS MV Deceleration [place] 6.4 m/s2 CV PACS E Wave Deceleration [...] S' 11 cm/s CV PACS RA Major [place] 4.9 cm CV PACS RA Major [place] Index 2.2 2.1 - 2.7 cm/m2 CV [...] with the patient in a supine position. us Bradley CREWS CV ECHO PROCEDURES Final Result * SST tube (03/17/2025 6:56 AM EDT) Extra Tube Hold for add-ons. 03/17/2025 9:01 AM EDT [facility] Comment:Auto resulted. Blood Venous blood specimen / Unknown Venipuncture / Unknown 03/17/2025 6:56 AM EDT 03/17/2025 7:33 AM EDT us Rosa Hu MD LAB BLOOD ORDERABLES Final Re sult Performing Organization Address City/[facility]/ZIP Co de Phone Number [facility] [address] [place] [address], [place] [phone] * Lavender tube (03/17/2025 6:56 AM EDT) [facility] Extra Tube Hold for add-ons. 03/17/2025 9:01 AM EDT [facility] Comment:Auto resulted. Blood Venous blood specimen / Unknown 03/17/2025 6:56 AM EDT 03/17/2025 7:33 AM EDT us Rosa Hu MD LAB BLOOD ORDERABLES Final Re sult [facility] [address] [place] [address], [place] [phone] * (ABNORMAL) Hemoglobin A1c (03/17/2025 6:56 AM EDT) [facility] Hemoglobin A1C 8.9(H) <6.5 % LAB CHEMISTRY METHOD 03/17/2025 9:21 PM EDT [facility] Mean Bld Glu Estim. 209 mg/dL LAB CHEMISTRY METHOD 03/17/2025 9:21 PM EDT [facility] Blood Venous blood specimen / Unknown 03/17/2025 6:56 AM EDT 03/17/2025 7:33 AM EDT Paula Fam MINERAL TECHNOLOGIST LAB BLOOD ORDERABLES Fin al Result [facility] [address] [place] [address], * Procalcitonin (03/17/2025 4:01 AM EDT) Procalcitonin 0.10 <=0.16 ng/mL LAB CHEMISTRY METHOD 03/17/2025 9:38 AM EDT [facility] Blood Venous blood specimen / Unknown Venipuncture / Unknown 03/17/2025 4:01 AM EDT 03/17/2025 4:14 AM EDT Narrative [facility] - 03/17/2025 9:38 AM EDT Procalcitonin [...] CREWS LAB BLOOD ORDERABLES Final Resul t [facility] [address] [place] [address], [place] [phone] * (ABNORMAL) Urinalysis with reflex microscopic and culture (03/17/2025 2:10 AM EDT) Only the most recent of2 resultswithin the time period is included. Specific Roberta Urine >1.045(H) 1.003 - 1.030 LAB URINALYSIS - AUTOMATED METHOD 03/17/2025 2:39 AM [facility] pH, Urine 6.0 5.0 - 8.0 pH LAB URINALYSIS - AUTOMATED METHOD 03/17/2025 2:39 AM [facility] Leukocytes, Urine Small(A) Negative LAB URINALYSIS - AUTOMATED METHOD 03/17/2025 2:39 AM [facility] Nitrite, Urine Positive(A) Negative LAB URINALYSIS - AUTOMATED METHOD 03/17/2025 2:39 AM [facility] Protein, Urine Trace <=Trace mg/dL LAB URINALYSIS - AUTOMATED METHOD 03/17/2025 2:39 AM [facility] Glucose, Urine 500(A) Negative mg/dL LAB URINALYSIS - AUTOMATED METHOD 03/17/2025 2:39 AM [facility] Ketones, Urine Trace(A) Negative mg/dL LAB URINALYSIS - AUTOMATED METHOD 03/17/2025 2:39 AM [facility] Urobilinogen , Urine 1.0 0.2 - 1.0 mg/dL LAB URINALYSIS - AUTOMATED METHOD 03/17/2025 2:39 AM [facility] Bilirubin, Urine Negative Negative LAB URINALYSIS - AUTOMATED METHOD 03/17/2025 2:39 AM EDT [facility] Blood, Urine Negative Negative LAB URINALYSIS - AUTOMATED METHOD 03/17/2025 2:39 AM EDT [facility] RBC, Urine 3.2 0 - 4 /HPF LAB URINALYSIS - AUTOMATED METHOD 03/17/2025 2:39 AM T [facility] WBC, Urine 38.6(H) 0 - 4 /HPF LAB URINALYSIS - AUTOMATED METHOD 03/17/2025 2:39 AM EDT [facility] Squamous Epithelial, Urine 14 0 - 60 /LPF LAB URINALYSIS - AUTOMATED METHOD 03/17/2025 2:39 AM T [facility] Bacteria, Urine Many(A) Negative /HPF LAB URINALYSIS - AUTOMATED METHOD 03/17/2025 2:39 AM [facility] Hyaline Casts, Urine 3.0 0 - 3 /LPF LAB URINALYSIS - AUTOMATED METHOD 03/17/2025 2:39 AM [facility] Urine Urine specimen obtained by clean catch procedure / Unknown Non-blood Collection / Unknown 03/17/2025 2:10 AM EDT 03/17/2025 2:14 AM EDT us Bradley Argueta PA LAB URINE ORDERABLES Final Resul t [facility] [address] [place] [address], * Lim urine culture tube (03/17/2025 2:10 AM EDT) Only the most recent of2 resultswithin the time period is included. Extra Tube Hold for add-ons. 03/17/2025 4:01 AM EDT [facility] Comment:Auto resulted. Urine Urine specimen obtained by clean catch procedure / Unknown Non-blood Collection / Unknown 03/17/2025 2:10 AM EDT 03/17/2025 2:14 AM EDT us Bradley CREWS LAB URINE ORDERABLES Final Resul t Performing Organization Address [facility] Co de Phone Number [facility] [address] [place] [address], [place] [phone] * (ABNORMAL) Culture urine (03/17/2025 2:10 AM EDT) Only the most recent of2 resultswithin the time period is included. [facility] Culture, Urine >=100,000 CFU/mL Escherichia coli(A) 03/21/2025 7:52 AM EST [facility] Urine Urine specimen obtained by [...] ORDER HALEIGH Final Result Performing Organization Address City/[facility]/ZIP Co de Phone Number [facility] [address] [place] [address], [place] [phone] * Respiratory virus panel molecular study (03/16/2025 9:38 PM EDT) [facility] Adenovirus Detection by PCR Not Detected Not Detected LAB MICROBIOLOGY METHOD 03/17/2025 12:27 AM EDT [facility] Influenza A PCR Not Detected Not Detected LAB MICROBIOLOGY METHOD 03/17/2025 12:27 AM EDT [facility] Influenza B PCR Not Detected Not Detected LAB MICROBIOLOGY METHOD 03/17/2025 12:27 AM EDT [facility] Coronavirus 229E Not Detected Not Detected LAB MICROBIOLOGY METHOD 03/17/2025 12:27 AM EDT [facility] Coronavirus HKU1 Not Detected Not Detected LAB MICROBIOLOGY METHOD 03/17/2025 12:27 AM EDT [facility] Coronavirus OC43 Not Detected Not Detected LAB MICROBIOLOGY METHOD 03/17/2025 12:27 AM EDT [facility] Coronavirus NL63 Not Detected Not Detected LAB MICROBIOLOGY METHOD 03/17/2025 12:27 AM EDT [facility] Parainfluenza Virus 1 Not Detected Not Detected LAB MICROBIOLOGY METHOD 03/17/2025 12:27 AM EDT [facility] Parainfluenza Virus 2 Not Detected Not Detected LAB MICROBIOLOGY METHOD 03/17/2025 12:27 AM EDT [facility] Parainfluenza Virus 3 Not Detected Not Detected LAB MICROBIOLOGY METHOD 03/17/2025 12:27 AM EDT [facility] Parainfluenza Virus 4 Not Detected Not Detected LAB MICROBIOLOGY METHOD 03/17/2025 12:[facility] RSV PCR Not Detected Not Detected LAB MICROBIOLOGY METHOD 03/17/2025 12:27 AM EDT [facility] Human Metapneumovirus A and B Not Detected Not Detected LAB MICROBIOLOGY METHOD 03/17/2025 12:27 AM EDT [facility] Rhinovirus/Entero virus Not Detected Not Detected LAB MICROBIOLOGY METHOD 03/17/2025 12:27 AM EDT [facility] Bordetella pertussis Not Detected Not Detected LAB MICROBIOLOGY METHOD 03/17/2025 12:27 AM EDT [facility] Bordetella parapertussis Not Detected Not Detected LAB MICROBIOLOGY METHOD 03/17/2025 12:27 AM EDT [facility] Mycoplasma pneumo by PCR Not Detected Not Detected LAB MICROBIOLOGY METHOD 03/17/2025 12:27 AM EDT [facility] Chlamydia pneumoniae Not Detected Not Detected LAB MICROBIOLOGY METHOD 03/17/2025 12:27 AM EDT [facility] SARS COV-2 Not Detected Not Detected LAB MICROBIOLOGY METHOD 03/17/2025 12:27 AM EDT [facility] Swab Both anterior nares / Unknown Non-blood Collection / Unknown 03/16/2025 9:38 PM EDT 03/16/2025 10:12 PM EDT Narrative [facility] - 03/17/2025 12:27 AM EDT Testing was performed using the [employer] Respiratory Pathogen PCR Assay. All results must [...] MICROBIOLOGY - GENERAL ORDER HALEIGH Final Result [facility] [address] [place] [address], * MRSA molecular study (03/16/2025 9:38 PM EDT) [facility] MRSA Screen PCR Not Detected Not Detected LAB MICROBIOLOGY METHOD 03/16/2025 11:36 PM EDT [facility] Swab Both anterior nares / Unknown Non-blood Collection / Unknown 03/16/2025 9:38 PM EDT 03/16/2025 10:12 PM EDT us Bradley CREWS LAB MICROBIOLOGY - GENERAL ORDER HALEIGH Final Result [facility] [address] [place] [address], [place] [phone] * Activated Partial Thromboplastin Time - STAT (03/16/2025 7:52 PM EDT) aPTT 30.3 24.1 - 39.3 sec LAB COAGULATION METHOD 03/16/2025 8:25 PM EDT [facility] Blood Venous blood specimen / Unknown Venipuncture / Unknown 03/16/2025 7:52 PM EDT 03/16/2025 8:12 PM EDT us Cody Abreu MD LAB BLOOD ORDERABLES Final Res ult Performing Organization Address [facility]/ZIP Co de Phone Number [facility] [address] [place] [address], [place] [phone] * Prothrombin Time with INR - STAT (03/16/2025 7:52 PM EDT) [facility] Protime 13.2 10.6 - 13.9 sec LAB COAGULATION METHOD 03/16/2025 8:25 PM EDT [facility] INR 1.1 LAB COAGULATION METHOD 03/16/2025 8:25 PM EDT [facility] Blood Venous blood specimen / Unknown Venipuncture / Unknown 03/16/2025 7:52 PM EDT 03/16/2025 8:12 PM EDT us Cody Abreu MD LAB BLOOD ORDERABLES Final Res ult [facility] [address] [place] [address], [place] [phone] * Vascular US duplex lower extremity venous [...] by: Kerry Ferreira MD on 03/16/2025 20:12:39 us Cody Abreu MD CV VASCULAR PROCEDURES Edited [...] of2 resultswithin the time period is included. [facility] Ventricular Rate ECG 115 BPM GEMUSE Atrial Rate 115 BPM GEMUSE P-R Interval 150 ms GEMUSE QRS Duration 96 ms GEMUSE Q-T Interval 336 ms GEMUSE QTc 464 ms GEMUSE P Wave [place] 53 degrees GEMUSE R [place] 51 degrees GEMUSE T [place] 28 degrees GEMUSE ECG Interpretation Sinus tachycardia [...] of2 resultswithin the time period is included. [facility] High Sensitivity Troponin I 207(HH) <=79 ng/L LAB CHEMISTRY METHOD 03/16/2025 6:06 PM EDT [facility] Blood Venous blood specimen / Unknown Venipuncture / Unknown 03/16/2025 5:16 PM EDT 03/16/2025 5:26 PM EDT Narrative [facility] - 03/16/2025 6:06 PM EDT High levels of biotin in samples may falsely decrease hsTroponin values. Use caution when interpreting hsTroponin results in patients taking biotin who exhibit renal impairment (eGFR <60) or in patients taking more than 20 mg/day of biotin. us Cody Abreu MD LAB BLOOD ORDERABLES Final Res ult Performing Organization Address [facility] de Phone Number [facility] [address] [place] [address], [place] [phone] * (ABNORMAL) D-Dimer (Quantitative) (03/16/2025 5:16 PM EDT) D-Dimer, Quant (D-DU) 9,140(H) <=230 ng/mL DDU LAB COAGULATION METHOD 03/16/2025 5:45 PM EDT [facility] Blood Venous blood specimen / Unknown Venipuncture / Unknown 03/16/2025 5:16 PM EDT 03/16/2025 5:26 PM EDT Narrative [facility] - 03/16/2025 5:45 PM EDT D-Dimer <230 ng/mL (D-Dimer units) is the threshold for exclusion of DVT/PE. D-Dimer may be elevated in: Critically ill, severely infected, trauma patients, DIC, acute CVA, acute GA, unstable angina, AF, old age, , and smoking. D-Dimer may be decreased with: Initiation of heparin therapy and oral anticoagulants. us Cody Abreu MD LAB BLOOD ORDERABLES Final Res ult Performing Organization Address [facility] de Phone Number [facility] [address] [place] [address], * XR Chest 2 Views (03/16/2025 5:07 [...] Stimulating Hormone (TSH) (03/16/2025 4:30 PM EDT) Pathologist [facility] TSH 1.78 0.40 - 4.00 mcIU/mL LAB CHEMISTRY METHOD 03/16/2025 8:37 PM EDT [facility] Blood Venous blood specimen / Unknown Venipuncture / Unknown 03/16/2025 4:30 PM EDT 03/16/2025 5:25 PM EDT us Cody Abreu MD LAB BLOOD ORDERABLES Final Res ult [facility] [address] [place] [address], * B-type natriuretic peptide (03/16/2025 4:30 PM EDT) Pathologist [facility] BNP 33 <=100 pcg/mL LAB CHEMISTRY METHOD 03/16/2025 6:01 PM EDT [facility] Blood Venous blood specimen / Unknown Venipuncture / Unknown 03/16/2025 4:30 PM EDT 03/16/2025 5:25 PM EDT us Cody Abreu MD LAB BLOOD ORDERABLES Final Res ult [facility] [address] [place] [address], [place] [phone] * Lipase (03/16/2025 4:30 PM EDT) Pathologist [facility] Lipase 20 13 - 75 unit/L LAB CHEMISTRY METHOD 03/16/2025 5:51 PM EDT [facility] Blood Venous blood specimen / Unknown Venipuncture / Unknown 03/16/2025 4:30 PM EDT 03/16/2025 5:25 PM EDT us Cody Abreu MD LAB BLOOD ORDERABLES Final Res ult Performing Organization Address [facility]/ZIP Co de Phone Number [facility] [address] [place] [address], [place] [phone] * (ABNORMAL) Comprehensive metabolic panel (03/16/2025 4:30 PM EDT) [facility] Sodium 137 133 - 145 mmol/L LAB CHEMISTRY METHOD 03/16/2025 5:51 PM EDT [facility] Potassium 4.2 3.5 - 5.5 mmol/L LAB CHEMISTRY METHOD 03/16/2025 5:51 PM EDT [facility] Chloride 104 96 - 110 mmol/L LAB CHEMISTRY METHOD 03/16/2025 5:51 PM EDT [facility] CO2 27 21 - 32 mmol/L LAB CHEMISTRY METHOD 03/16/2025 5:51 PM EDT [facility] Anion Gap 6 3 - 11 LAB CHEMISTRY METHOD 03/16/2025 5:51 PM EDT [facility] Glucose 165(H) 70 - 100 mg/dL LAB CHEMISTRY METHOD 03/16/2025 5:51 PM EDT [facility] BUN 8 5 - 25 mg/dL LAB CHEMISTRY METHOD 03/16/2025 5:51 PM [facility] Creatinine 1.01 0.70 - 1.30 mg/dL LAB CHEMISTRY METHOD 03/16/2025 5:51 PM [facility] eGFR 91 >=60 mL/min/1. 73m2 LAB CHEMISTRY METHOD 03/16/2025 5:51 PM [facility] Comment:Calculation based on the Chronic Kidney Disease Epidemiology Collaboration (CKD-EPI) equation refit without adjustment for race. BUN/Creatinine Ratio 7.9 LAB CHEMISTRY METHOD 03/16/2025 5:51 PM [facility] Calcium 9.3 8.5 - 10.5 mg/dL LAB CHEMISTRY METHOD 03/16/2025 5:51 PM [facility] AST (SGOT) 8(L) 10 - 42 unit/L LAB CHEMISTRY METHOD 03/16/2025 5:51 PM [facility] ALT (SGPT) 21 10 - 60 unit/L LAB CHEMISTRY METHOD 03/16/2025 5:51 PM [facility] Alkaline Phosphatase 73 42 - 121 unit/L LAB CHEMISTRY METHOD 03/16/2025 5:51 PM [facility] Total Protein 7.5 6.0 - 8.0 g/dL LAB CHEMISTRY METHOD 03/16/2025 5:51 PM [facility] Albumin 3.7 3.2 - 5.0 g/dL LAB CHEMISTRY METHOD 03/16/2025 5:51 PM [facility] Total Bilirubin 0.6 0.0 - 1.4 mg/dL LAB CHEMISTRY METHOD 03/16/2025 5:51 PM [facility] Blood Venous blood specimen / Unknown Venipuncture / Unknown 03/16/2025 4:30 PM EDT 03/16/2025 5:25 PM EDT us Cody Abreu MD LAB BLOOD ORDERABLES Final Res ult [facility] [address] [place] [address], [place] [phone] * CO CRITICAL CARE 30-74 MINUTES (03/16/2025 4:06 PM [...] Documents on File Type Date Recorded Patient Dynamiter Expl anation Advance Directives and Living Will [...] Agents on File Name Relationship Healthcare Agent [facility] Communication Marifer Bajwa [facility] Care Agent Care Teams Counseling Department Chair Relationship Specialty Start Date End Date Physician, No Pcp PCP - General 03/16/25
== END 2025-05-06 14:08 | disposition home or self-care (01) ==
LOC: HO.HMCFMS 13:41
PROVIDERS: PCP Student in an Organized Health Care Education/Training Program; Visit Provider Student in an Organized Health Care Education/Training Program
DX: E11.9 Type 2 diabetes mellitus without complications (principal); I26.99 Other pulmonary embolism without acute cor pulmonale; E78.5 Hyperlipidemia, unspecified; D64.9 Anemia, unspecified; E53.8 Deficiency of other specified B group vitamins; E66.812 Obesity, class 2

== ENCOUNTER → 2025-05-06 13:40 | Outpatient (BNVA) | payer OTHER, SELFPAY | PROVIDERS: PCP Student in an Organized Health Care Education/Training Program; Visit Provider Student in an Organized Health Care Education/Training Program | DX: E11.9 Type 2 diabetes mellitus without complications (principal); E78.5 Hyperlipidemia, unspecified; D64.9 Anemia, unspecified; E53.8 Deficiency of other specified B group vitamins; I26.99 Other pulmonary embolism without acute cor pulmonale; E66.812 Obesity, class 2; Z79.84 Long term (current) use of oral hypoglycemic drugs; Z86.718 Personal history of other venous thrombosis and embolism; Z79.899 Other long term (current) drug therapy | CPT/HCPCS: 96127; 99212 ==